=== PATIENT | male | born 1950 | race Caucasian/White ===

== ENCOUNTER 2017-09-24 03:03 | Inpatient (IN) | payer MEDICARE ==
[2017-09-24] MEDS ORDERED: Fentanyl 100 MCG/2 ML VIAL ONE (03:11)
[2017-09-24] MEDS ORDERED: Metoprolol Tartrate 5 MG/5 ML VIAL ONE (03:11)
[2017-09-24 03:38] LABS: #Eosinphils 0.2 thou/uL (0.0-0.7); #Lymphocytes 1.1 thou/uL (1.20-3.40); #Monocytes 0.9 thou/uL (0.11-0.59); #Neutrophils 8.3 thou/uL (1.40-6.50); %Eosinophils 2.1 % (0.0-10.0); %Lymphocytes 10.8 % (21.0-51.0); %Monocytes 8.4 % (0.0-10.0); %Neutrophils 78.6 % (42.0-75.0); Mean Corpuscular HGB CONC 33.9 g/dL (32.0-36.0); Mean Corpuscular Hemoglobin 28.9 pg (27.0-31.0); Mean Corpuscular Volume 85.1 fl (80.0-94.0); Mean Platelet Volume 8.9 fL (7.4-10.4); Platelet Count 198 thou/uL (130-400); Red Blood Cell (RBC) Count 3.45 mill/uL (4.70-6.10); White Blood Cell (WBC) Count 10.5 thou/uL (4.8-10.8)
[2017-09-24 03:45] LABS: PTT 32.6 SEC (22.9-36.1); Prothrombin Time 13.7 SEC (12.0-14.7)
[2017-09-24 04:00] LABS: ALT (SGPT) 33 U/L (8-55); AST (SGOT) 27 U/L (5-34); Albumin 3.3 g/dL (3.4-4.8); Alkaline Phosphatase 171 U/L (40-150); Anion Gap 14 mmol/L (10-20); BUN (Urea Nitrogen) 26 mg/dL (8.4-25.7); Bilirubin, Total 0.6 mg/dL (0.2-1.2); Calc. Creatinine Clearance 0 mL/min (70-130); Calcium 8.1 mg/dL (7.8-10.44); Carbon Dioxide 23 mmol/L (23-31); Chloride 99 mmol/L (98-107); Estimated GFR-MDRD 50; Globulin 2.8 g/dL (2.4-3.5); Glucose 116 mg/dL (80-115); Magnesium 1.4 mg/dL (1.6-2.6); Potassium 3.6 mmol/L (3.5-5.1); Protein, Total 6.1 g/dL (5.8-8.1); Sodium 132 mmol/L (136-145)
[2017-09-24 04:03] LABS: CKMB 4.6 ng/mL (0-6.6); Troponin I 0.034 ng/mL (< 0.028)
[2017-09-24 04:58] LABS: Bilirubin Small (Negative); Blood, Urine Negative (Negative); Clarity CLEAR (Clear); Glucose, Urine (Dipstick) Negative (Negative); Leukocyte Trace (Negative); Nitrite Negative (Negative); Protein, Urine (Dipstick) Negative (Neg-Trace); Specific Gravity, Urine 1.016 (1.002-1.036)
[2017-09-24 05:00] LABS: Bacteria/HPF None Seen HPF (None Seen); Pathc Cast-AUWi Flag 1.88 (0-2.49); RBC/HPF 0-3 HPF (0-3); Squamous Epithelial 0-3 HPF (0-3); WBC/HPF 0-3 HPF (0-3)
[2017-09-24 05:08] LABS: Hyaline Casts/LPF 4-6 HYALINE CAST LPF (0-3 Hyaline)
[2017-09-24 07:18] LABS: Troponin I 0.076 ng/mL (< 0.028)
[2017-09-24] MEDS ORDERED: Acetaminophen 325 MG TAB PO PRN ×2 (08:36→11:11)
[2017-09-24] MEDS ORDERED: Ondansetron ODT 4 MG TAB PO PRN (08:37)
[2017-09-24] MEDS ORDERED: Ondansetron HCl/PF 4 MG/2 ML Vial IVP PRN (08:37)
--- NOTE | 2017-09-24 08:58 | CT ---
PRELIMINARY REPORT/[facility]/EMERGENTY AFTER-HOURS PROCEDURE CT Angiography Chest With Intravenous Contrast CLINICAL HISTORY: 66 years old, male; Signs and symptoms; Shortness of breath; Prior surgery; Surgery date: 6+months; P atient HX: 66 yo m presents to ed C/O SOB onset 23: 30 this evening. On ems arrival, pt heart rate 21 0 in svt/afib. Given adenosine, cardizem, and 1800 of fluid en route. Unknown h/o afib. Son reports h/o quadruple bypass 5 years ago. States that pt had fusion neck on 08/28/17, surgery on ba ck on 08/30/17, and splint on foot on 09/02/17. Ems reports pt was just released from hospital. Denies f ever. Son states pt is a former smoker, quit 6 years ago. States that pt drinks about a glass of red wine a night. TECHNIQUE: Axial computed tomographic angiography images of the chest with intravenous contrast using pulmonary embolism protocol. MIP reconstructed images were created and reviewed. CONTRAST: 60 mL of ISOVUE 370 administered intravenously. COMPARISON: No relevant prior studies available. FINDINGS: Pulmonary arteries: No pulmonary embolism. Aorta: No acute findings. No thoracic aortic aneurysm. Lungs: Mild interstitial edema No mass. No consolidation. 2 mm nodule on image 52 in the rightupper l obe noted Pleural space: Trace pleural fluid. No pneumothorax. Heart: Post CABG. Mild cardiomegaly. No significant pericardial effusion. No evidence of RV dysfunction. Bones/joints: No acute fracture. No dislocation. Postsurgical changes in the lumbar spine partially visualized. Partially visualized cervical fusion hardware Soft tissues: Unremarkable. Lymph nodes: Mildly enlarged mediastinal lymph nodes IMPRESSION: No definite pulmonary embolism Mild interstitial edema and trace pleural fluid. Mild adenopathy presumed reactive Status post CABG Thank you for allowing us to participate in the care of your patient. Dictated and Authenticated by: Rudi Varma MD 09/24/2017 5:28 AM Central Time ([place] & [place]) FINAL REPORT CT ANGIOGRAM OF THE CHEST: Date: 09/24/17 HISTORY: New onset atrial fibrillation with RVR. Evaluate for pulmonary embolism. COMPARISON: None. TECHNIQUE: CT angiogram of the chest is performed in the axial plane. Bilateral oblique and coronal three-dimens ional reformatted images are submitted for interpretation. FINDINGS: This report is in agreement with the preliminary report by Silvana. No evidence of pulmonary artery embo lism to the level of the segmental arteries. Lung parenchymal changes are presumed to be due to conge stive heart failure/volume overload. There are a few scattered nonspecific mediastinal lymph nodes wh ich may be reactive. Clinical correlation is essential. Additional imaging if warranted. POS: [facility]
[2017-09-24] MEDS ORDERED: ISOVUE-370 76%-LOCM 1 ML ONE (09:26)
[2017-09-24 09:36] LABS: Troponin I 0.099 ng/mL (< 0.028)
--- NOTE | 2017-09-24 09:36 | RAD ---
CHEST 1 VIEW: HISTORY: SVT. COMPARISON: None. FINDINGS: Defibrillator pad projects in the right hemithorax. Heart size is enlarged. Mild increased intersti tial markings. No pneumothorax. Surgical hardware is present. IMPRESSION: Mild cardiomegaly and interstitial edema. POS: [facility]
[2017-09-24] MEDS ORDERED: Guaifenesin DM 100-10/5 ML UDCUP PO PRN (11:11)
[2017-09-24] MEDS ORDERED: Dextrose 50% Abboject 50 ML SYRINGE SLOW IVP PRN (11:11)
[2017-09-24] MEDS ORDERED: Dextrose 5% in Water 1,000 ML IV PRN (11:11)
[2017-09-24] MEDS ORDERED: HumaLOG 300 UNITS/3 ML VIAL SC PRN (11:11)
[2017-09-24] MEDS ORDERED: Furosemide 20 MG TAB PO SCH ×2 (11:15→14:00)
[2017-09-24] MEDS: hydrALAZINE 25 MG TAB PO SCH ×2 (14:46→21:14)
[2017-09-24] MEDS: Furosemide 40 MG TAB PO SCH (14:47)
[2017-09-24 14:50] VITALS: BMI 33.3
--- NOTE | 2017-09-24 14:57 | HP ---
REASON FOR ADMISSION: Atrial fibrillation with RVR. HISTORY OF PRESENT ILLNESS: The patient gives history of being discharged from [facility] yesterday. He went home and was not comfortable ambulating with his walker, which does not have wheels. He apparently ambulated 125 feet prior to getting discharged from rehabilitation. Around 11:30 p.m., the patient felt very short of breath. He tried putting his CPAP on, still the shortness of breath would not go away. He felt very weak and he tried various maneuvers including sitting, none of which really helped. He finally called EMS and was brought here. He has had recent surgery for his cervical spine and thoracic spine at [facility] in [place]. This was done on the and and postop patient also had a pneumonia and was in ICU for a week. He was finally discharged to rehabilitation. He was recuperating well prior to going home. No complaints of chest pain, palpitations. Still has orthopnea, but no PND. PAST MEDICAL/SURGICAL HISTORY: History of CABG done in 2014. His primary coat cutter is Dr. Sofia Amezcua, coat cutter in [place]. He also follows up with Dr. 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 His primary care doctor is Dr. Benji Henry in [place]. Obstructive sleep apnea and has had ACDF for C3-C2 vertebra and L1-L5 internal fixation done at [facility] in [place] on the and 30 of August this year, has had prophylactic IVC filter placed. There is no history of DVT. He was told if this did not come out in 14 days it would stay inside him. Has had carotid stent on the right side done in late 2014, dyslipidemia, obesity. CURRENT MEDICATIONS: The patient is on atorvastatin 20 mg daily, hydralazine 25 mg 3 times daily, oxycodone p.r.n., Lyrica 75 mg 3 times daily. The patient does not recall other medications that he is on and will try to obtain the same from his pharmacy. ALLERGIES: PENICILLIN. PERSONAL HISTORY: Drinks 3-4 glasses of red wine in a week, does not abuse drugs. Quit smoking in 2014 prior to CABG, has smoked for nearly 30-40 years prior to that. Lives with his . FAMILY HISTORY: Mother of cirrhosis and its complications in her 30s. She was a heavy alcoholic. Father of COPD and its complications at the age of 68. CODE STATUS: FULL. Power of administrative and program specialist is his . REVIEW OF SYSTEMS: The following complete review of systems was negative, unless otherwise mentioned in the HPI or below: Constitutional: Weight loss or gain, ability to conduct usual activities. Skin: Rash, itching. Eyes: Double vision, pain. ENT/Mouth: Nose bleeding, neck stiffness, pain, tenderness. Cardiovascular: Palpitations, dyspnea on exertion, orthopnea. Respiratory: Shortness of breath, wheezing, cough, hemoptysis, fever or night sweats. Gastrointestinal: Poor appetite, abdominal pain, heartburn, nausea, vomiting, constipation, or diarrhea. Genitourinary: Urgency, frequency, dysuria, nocturia. Musculoskeletal: Pain, swelling. Neurologic/Psychiatric: Anxiety, depression. Allergy/Immunologic: Skin rash, bleeding tendency. PHYSICAL EXAMINATION: GENERAL: The patient is a 66-year-old male who is currently not in any acute distress. VITAL SIGNS: Blood pressure 110/70; pulse 146 on arrival, currently 84; respiratory rate is 18 per minute; temperature 98.6 degrees Fahrenheit; saturating 98%. NECK: Supple. No elevated JVD. HEENT: Eyes: Extraocular muscles intact. Pupils reacting to light. Oral cavity mucous membranes are moist. No exudates or congestion. The patient has a cervical collar on. CARDIOVASCULAR: S1, S2 heard. Regular rhythm. RESPIRATORY: Air entry 1+ bilateral. Scattered rhonchi plus bilateral basal rales plus. ABDOMEN: Soft, bowel sounds heard. No tenderness, rigidity or guarding. EXTREMITIES: There is 1-2+ peripheral edema, no calf tenderness. VASCULAR SYSTEM: Peripheral pulses 1+ bilateral, no ischemic ulcerations or gangrene. CENTRAL NERVOUS SYSTEM: No gross focal deficits seen. The patient is alert, awake, and oriented well. PSYCHIATRIC: The patient's mood is euthymic. No hallucinations or delusions. LABORATORY AND X-RAY FINDINGS: Initial EKG showed atrial fibrillation with RVR at 200 beats per minute. He also had Q-waves in V2, V3, V4, this was at 3:07 a.m. The patient was given Lopressor and a repeat EKG done at 3:42 a.m., shows normal sinus rhythm at 84 beats per minute. He still has the Q-wave seen in anterolateral leads. White count of 10, H&H 10 and 29, platelet count 198, MCV is 85 with 78% neutrophils. PT, INR, PTT within normal limits. Sodium 132, BUN 26, creatinine 1.4, serum bicarbonate 23, serum glucose 116. Troponin I was indeterminate peaking up to 0.09, CK-MB 4.6, albumin is 3.3. TSH 1.86. CT angio chest done shows no evidence of PE. There is mild pulmonary vascular congestion seen. CLINICAL IMPRESSION AND PLAN: The patient will be admitted to telemetry for atrial fibrillation with rapid ventricular response, currently in sinus rhythm after receiving Lopressor 5 mg IV push in the ER. He is holding up in sinus rhythm until now. He will be placed on Coreg 6.25 mg twice daily along with full dose aspirin. His anticoagulation will be held for now in view of his recent spine surgery and will await Cardiology opinion. Cardiology consultation with Dr. De La Torre is being placed. We will continue his Lipitor, hydralazine, and Lyrica as before. We will also place him on Lasix 40 mg twice daily and BNP levels will be obtained now. Echo with 2D Doppler for LV function and to rule out thrombus. The patient appears to have prior anterolateral wall ID with CABG done in 2014. We will continue to closely monitor him on telemetry floor. WILLAM
[2017-09-24] MEDS: Carvedilol 6.25 MG TAB PO SCH (16:27)
[2017-09-24] MEDS: oxyCODONE/Acetaminophen 5 mg/325 mg Tablet PO PRN ×2 (16:27→21:14)
[2017-09-24] MEDS: Docusate 100 MG CAP PO SCH (21:14)
[2017-09-24] MEDS: Famotidine 20 MG TAB PO SCH (21:14)
[2017-09-24] MEDS: Atorvastatin Calcium 20 MG TAB PO SCH (21:14)
[2017-09-24] MEDS: Pregabalin 75 MG CAP PO SCH (21:15)
[2017-09-24] MEDS ORDERED: Metoprolol Tartrate 5 MG/5 ML VIAL IVP SCH (22:45)
--- NOTE | 2017-09-25 03:25 | CON ---
DATE OF CONSULTATION: 09/24/2017 REASON FOR CONSULTATION: Atrial flutter with a rapid ventricular response. HISTORY OF PRESENT ILLNESS: Mr. Hai Landry is a pleasant gentleman who recently was found to have atrial flutter with a ventricular rate of 210 beats per minute. The patient recently has undergone cervical spine and lumbar spine surgery. He has felt short of simi ath. He ultimately was brought to medical attention and was found to have what looks like atrial flu tter with a rate of 210 beats per minute, very regular. The patient is later converted to normal rhythm and is feeling much better. He did not feel his hear t racing just felt short of breath with that. PAST MEDICAL HISTORY: He had a history of coronary bypass grafting a couple of years ago in the [facility] area x3. His symptom predominant prior to that was shortness of breath. Recent cervical and lum bar spine surgery about 3 to 4 weeks ago. MEDICATIONS AT HOME: 1. Protonix. 2. Furosemide. 3. Diltiazem 90 mg 3 times a day. 4. Carvedilol 12.5 mg twice a day. 5. Atorvastatin. 6. Lyrica. ALLERGIES: PENICILLIN. REVIEW OF SYSTEMS: Constitutional: No significant weight gain or loss. Vision: No changes. Heari ng: No changes. Pulmonary: No cough or wheezing. Gastrointestinal: No nausea, vomiting, diarrhea . Skin: No rashes. Neurologic: No unilateral weakness or numbness. Psychiatric: No unusual depr ession or anxiety. Hematologic: No unusual bruising. Genitourinary: No burning with urination. PHYSICAL EXAMINATION: GENERAL: This is a pleasant 66-year-old man in no distress. VITAL SIGNS: Blood pressure is 149/62, pulse 87 regular. LUNGS: Clear. CARDIAC: Normal S1, normal S2. ABDOMEN: Soft, nontender. EXTREMITIES: No clubbing or cyanosis. There is no edema. HEMATOLOGIC: No unusual bruising. PSYCHIATRIC: Mood and affect normal. SKIN: Warm and dry. IMAGING: EKG as outlined above. The troponin level 0.099. ASSESSMENT: 1. It would look like atrial flutter with a very rapid rate 210 beats per minute, although it could even be supraventricular tachycardia. 2. Recent cervical spine surgery. PLAN: Consult electrophysiology for further recommendations, but some point may need to go to the EP lab. He has very rapid tachycardia despite diltiazem and a beta-noemy.
[2017-09-25] MEDS: oxyCODONE/Acetaminophen 5 mg/325 mg Tablet PO PRN ×3 (03:44→16:29)
[2017-09-25 05:29] LABS: #Basophils 0.1 thou/uL (0.0-0.2); #Eosinphils 0.2 thou/uL (0.0-0.7); #Lymphocytes 0.9 thou/uL (1.20-3.40); #Monocytes 0.6 thou/uL (0.11-0.59); #Neutrophils 4.1 thou/uL (1.40-6.50); %Basophils 1.1 % (0.0-1.0); %Eosinophils 3.7 % (0.0-10.0); %Lymphocytes 15.4 % (21.0-51.0); %Monocytes 10.5 % (0.0-10.0); %Neutrophils 69.4 % (42.0-75.0); Mean Corpuscular HGB CONC 33.4 g/dL (32.0-36.0); Mean Corpuscular Hemoglobin 29.1 pg (27.0-31.0); Mean Corpuscular Volume 87.1 fl (80.0-94.0); Mean Platelet Volume 8.9 fL (7.4-10.4); Platelet Count 159 thou/uL (130-400); RBC Distribution Width 15.9 % (11.5-14.5); Red Blood Cell (RBC) Count 3.08 mill/uL (4.70-6.10); White Blood Cell (WBC) Count 5.9 thou/uL (4.8-10.8)
[2017-09-25 05:39] LABS: Anion Gap 14 mmol/L (10-20); BUN (Urea Nitrogen) 20 mg/dL (8.4-25.7); Calc. Creatinine Clearance 87 mL/min (70-130); Calcium 8.4 mg/dL (7.8-10.44); Carbon Dioxide 24 mmol/L (23-31); Chloride 101 mmol/L (98-107); Estimated GFR-MDRD 60; Glucose 105 mg/dL (80-115); Potassium 3.5 mmol/L (3.5-5.1); Sodium 135 mmol/L (136-145)
[2017-09-25] MEDS ORDERED: Furosemide 20 MG TAB PO SCH (09:00)
[2017-09-25] MEDS: Docusate 100 MG CAP PO SCH ×2 (10:17→21:39)
[2017-09-25] MEDS: Carvedilol 6.25 MG TAB PO SCH ×2 (10:17→16:32)
[2017-09-25] MEDS: hydrALAZINE 25 MG TAB PO SCH ×3 (10:17→21:39)
[2017-09-25] MEDS: Pregabalin 75 MG CAP PO SCH ×2 (10:18→21:40)
[2017-09-25] MEDS: Furosemide 40 MG TAB PO SCH ×2 (10:19→14:06)
[2017-09-25] MEDS: Famotidine 20 MG TAB PO SCH ×2 (10:19→21:39)
[2017-09-25] MEDS: Aspirin 325 MG TAB PO SCH (10:19)
[2017-09-25] MEDS: Enoxaparin Sodium 40 MG/0.4 ML SYRINGE SC SCH (10:19)
--- NOTE | 2017-09-25 11:37 | PDOC.PN ---
- Subjective Encounter Start Date: 09/25/17 Encounter Start Time: 08:40 Subjective: has another brief episode of svt/flutter last night -: no chest pain or sob -: is sitting in chair and eating breakfast - Objective Resuscitation Status: Resuscitation Status FULL:Full Resuscitation MAR Reviewed: Yes Vital Signs & Weight: Vital Signs (12 hours) Temp Pulse Resp BP BP BP Pulse Ox 09/25/17 10:17 83 114/52 L 09/25/17 09:52 98.2 F 83 18 134/58 L 100 09/25/17 04:00 97.9 F 71 20 126/56 L 97 09/25/17 03:24 98 Weight Weight 232 lb I&O: 09/24/17 09/25/17 09/26/17 06:59 06:59 06:59 Intake Total 1050 Output Total 110 Balance 940 Result Diagrams: 09/25/17 05:03 09/25/17 05:03 Additional Labs: Accuchecks 09/25/17 09/24/17 09/24/17 05:52 20:46 16:36 POC Glucose 111 H 195 H 171 H 09/24/17 12:06 POC Glucose 114 H Phys Exam - Physical Examination HEENT: PERRLA, moist MMs Neck: no JVD, supple Respiratory: no wheezing, no rales Cardiovascular: RRR, no significant murmur Gastrointestinal: soft, non-tender, positive bowel sounds Musculoskeletal: pulses present, edema present Neurological: non-focal, moves all 4 limbs Psychiatric: normal affect, A&O x 3 Dx/Plan (1) Afib Code(s): I48.91 - UNSPECIFIED ATRIAL FIBRILLATION Status: Acute Qualifiers: Atrial fibrillation type: paroxysmal Qualified Code(s): I48.0 - Paroxysmal atrial fibrillation (2) CAD (coronary artery disease) Code(s): I25.10 - ATHSCL HEART DISEASE OF [place] CORONARY ARTERY W/O ANG PCTRS Status: Chronic Qualifiers: Coronary Disease-Associated Artery/Lesion type: bypass graft [place] vs. transplanted heart: [place] heart Associated angina: without angina Qualified Code(s): I25.810 - Atherosclerosis of coronary artery bypass graft(s) without angina pectoris (3) HTN (hypertension) Code(s): I10 - ESSENTIAL (PRIMARY) HYPERTENSION Status: Chronic Qualifiers: Hypertension type: essential hypertension Qualified Code(s): I10 - Essential (primary) hypertension (4) Dyslipidemia Code(s): E78.5 - HYPERLIPIDEMIA, UNSPECIFIED Status: Chronic (5) Physical deconditioning Code(s): R53.81 - OTHER MALAISE Status: Acute (6) Demand ischemia of myocardium Code(s): I24.8 - OTHER FORMS OF ACUTE ISCHEMIC HEART DISEASE Status: Acute - Plan diuresed well with mild vol overload, await echo results -: is on coreg, asp, lipitor -: cardizem 90mg tid was added from last night -: change lasix to qd in am -: for likely ablation/EPS, will need rehab/swing bed * . Review of Systems - Medications/Allergies Allergies/Adverse Reactions: Allergies Allergy/AdvReac Type Severity Reaction Status Date / Time Penicillins Allergy Verified 09/24/17 09:50 Medications: Current Medications Acetaminophen (Tylenol) 650 mg PO Q4H PRN PRN Reason: Headache/Fever or Pain Aspirin (Aspirin) 325 mg PO DAILY [facility] Last Admin: 09/25/17 10:19 Dose: 325 mg Atorvastatin Calcium (Lipitor) 20 mg PO HS [facility] Last Admin: 09/24/17 21:14 Dose: 20 mg Carvedilol (Coreg) 6.25 mg PO BID-WM [facility] Last Admin: 09/25/17 10:17 Dose: 6.25 mg Dextrose/Water (Dextrose 50%) 25 gm SLOW IVP PRN PRN PRN Reason: Hypoglycemia Diltiazem HCl (Cardizem) 90 mg PO TID [facility] Last Admin: 09/25/17 10:17 Dose: 90 mg Docusate Sodium (Colace) 100 mg PO BID [facility] Last Admin: 09/25/17 10:17 Dose: 100 mg Enoxaparin Sodium (Lovenox) 40 mg SC 0900 [facility] Last Admin: 09/25/17 10:19 Dose: 40 mg Famotidine (Pepcid) 20 mg PO BID [facility] Last Admin: 09/25/17 10:19 Dose: 20 mg Furosemide (Lasix) 40 mg PO 0900,1400 [facility] Last Admin: 09/25/17 10:19 Dose: 40 mg Glucagon (Glucagon) 1 mg IM PRN PRN PRN Reason: Hypoglycemia Guaifenesin/Dextromethorphan (Robitussin Dm) 15 ml PO Q4H PRN PRN Reason: Cough Hydralazine HCl (Apresoline) 25 mg PO TID [facility] Last Admin: 09/25/17 10:17 Dose: 25 mg Dextrose/Water (D5w) 1,000 mls @ 0 mls/hr IV .Q0M PRN; As Directed PRN Reason: Hypoglycemia Insulin Human Lispro (Humalog) 0 units SC .MILD SLIDING SCALE PRN PRN Reason: Mild Correctional Scale Last Admin: 09/24/17 16:39 Dose: 2 unit Oxycodone/Acetaminophen (Percocet 5/325) 1 tab PO Q6H PRN PRN Reason: Pain Last Admin: 09/25/17 10:14 Dose: 1 tab Pregabalin (Lyrica) 75 mg PO BID [facility] Last Admin: 09/25/17 10:18 Dose: 75 mg
[2017-09-25] MEDS: Dronedarone HCl 400 MG TAB PO SCH (16:32)
[2017-09-25] MEDS: Atorvastatin Calcium 20 MG TAB PO SCH (21:38)
[2017-09-26] MEDS: oxyCODONE/Acetaminophen 5 mg/325 mg Tablet PO PRN ×2 (06:29→16:32)
[2017-09-26 08:44] LABS: #Eosinphils 0.2 thou/uL (0.0-0.7); #Monocytes 0.5 thou/uL (0.11-0.59); %Basophils 0.1 % (0.0-1.0); %Eosinophils 3.3 % (0.0-10.0); %Lymphocytes 17.1 % (21.0-51.0); %Monocytes 9.4 % (0.0-10.0); %Neutrophils 70.2 % (42.0-75.0); Hemoglobin 9.7 g/dL (14.0-18.0); Mean Corpuscular HGB CONC 33.7 g/dL (32.0-36.0); Mean Corpuscular Hemoglobin 29.1 pg (27.0-31.0); Mean Corpuscular Volume 86.5 fl (80.0-94.0); Mean Platelet Volume 8.8 fL (7.4-10.4); Platelet Count 170 thou/uL (130-400); RBC Distribution Width 15.9 % (11.5-14.5); Red Blood Cell (RBC) Count 3.32 mill/uL (4.70-6.10); White Blood Cell (WBC) Count 5.6 thou/uL (4.8-10.8)
[2017-09-26 09:04] LABS: Anion Gap 13 mmol/L (10-20); BUN (Urea Nitrogen) 17 mg/dL (8.4-25.7); Calc. Creatinine Clearance 82 mL/min (70-130); Calcium 8.7 mg/dL (7.8-10.44); Carbon Dioxide 27 mmol/L (23-31); Chloride 97 mmol/L (98-107); Estimated GFR-MDRD 58; Glucose 136 mg/dL (80-115); Potassium 3.6 mmol/L (3.5-5.1); Sodium 133 mmol/L (136-145)
[2017-09-26] MEDS: Docusate 100 MG CAP PO SCH (09:42)
[2017-09-26] MEDS: Dronedarone HCl 400 MG TAB PO SCH ×2 (09:42→16:31)
[2017-09-26] MEDS: Aspirin 325 MG TAB PO SCH (09:42)
[2017-09-26] MEDS: hydrALAZINE 25 MG TAB PO SCH ×2 (09:42→16:31)
[2017-09-26] MEDS: Pregabalin 75 MG CAP PO SCH (09:43)
[2017-09-26] MEDS: Famotidine 20 MG TAB PO SCH (09:44)
[2017-09-26] MEDS: Carvedilol 6.25 MG TAB PO SCH ×2 (09:45→16:31)
[2017-09-26] MEDS: Enoxaparin Sodium 40 MG/0.4 ML SYRINGE SC SCH (09:45)
[2017-09-26] MEDS ORDERED: Furosemide 40 MG TAB PO SCH (10:00)
--- NOTE | 2017-09-26 10:47 | CON ---
DATE OF CONSULTATION: 09/25/2017 ELECTROPHYSIOLOGY CONSULTATION DICTATED FOR: Riki Schwartz M.D. REFERRING PHYSICIAN: Keon De La Torre M.D. REASON FOR CONSULTATION: Atrial flutter with rapid ventricular response. PRIMARY CARE PROVIDER: Dr. Benji Henry PRIMARY TAR BOILER: Sofia Amezcua MD CHIEF COMPLAINT: Dizziness and a fall at home with dyspnea at rest. HISTORY OF PRESENT ILLNESS: Mr. Landry is a pleasant male who was recently admitted after having a f all at home. He has a somewhat complicated past medical history over the past month. He was origina lly at [facility] in [place] and underwent a multilevel anterior cervical corpectomy o n 08/28/2017 for severe cervical spondylosis and myelopathy as well as multilevel decompression eugene ectomies L1 through S1. He was discharged from [facility] after his recovery to LTAC and from there transition to home on 09/23/2017. While at home, he was at home and trying to get on the couch and e nded up falling. He began to experience severe dyspnea at rest with associated dizziness, not correc kodak when he put his CPAP on, so he called 911 and presented to the emergency room. Upon presentation , there he was found to be in atrial flutter with ventricular rate of 210 beats per minute. To the b est of his knowledge, he has never been diagnosed with atrial arrhythmias in the past and this is the first time he has experienced this. Today, we find that overall he is feeling okay. He not experie nce any heart racing, palpitations, chest pain, pressure, or continued dizziness. He did not have an y associated chest pain with his rapid heart rate. He denies any history of passing out. He is in a C-spine collar that needs to remain in place for the following 30 days. Denies any shortness of simi ath or dyspnea on exertion. Since he converted to normal sinus rhythm on his own. He is feeling muc h better and does not have any cardiac concerns or complaints at this time. He does have some swelli ng of his lower extremities and is receiving Lasix for that. PAST MEDICAL HISTORY: 1. Cerebrovascular accident. 2. Hypertension. 3. Hypercholesterolemia. 4. Carotid artery stenosis 50-69% of the right internal carotid, status post stenting, left internal carotid patent, coronary artery disease in the prior bypass grafting, 3-vessel in 2014. 5. Severe lumbar spinal stenosis from L1-S1. 6. Mechanical back pain. 7. Degenerative disk disease. 8. Grade I spondylolisthesis at L4-5. 9. Multilevel anterior cervical spondylosis and myelopathy status post cervical corpectomy on 2017. 10. Sleep apnea, treated with CPAP at night. 11. Mildly reduced LV function with an EF of 40-45% by ultrasound on 11/2015. ALLERGIES: Include PENICILLIN which causes hives. HOME MEDICATIONS: Tylenol 500 mg 2 tabs daily, aspirin 81 mg daily, vitamin D 5000 units daily, Plav ix 75 mg daily, cyanocobalamin 100 mcg daily, lisinopril 15 mg daily, and metoprolol 12.5 mg b.i.d. SOCIAL HISTORY: Remote history of tobacco habituation, quit in 2014, [id number] history. Positive for alcohol consumption, 4-5 glasses of wine per week. Negative for illicit drug use. FAMILY HISTORY: Father and sister had COPD, negative for early onset of coronary artery disease, arr hythmias or sudden cardiac . REVIEW OF SYSTEMS: A 12-point review of systems was conducted and is negative except that listed in the HPI. PHYSICAL EXAMINATION: VITAL SIGNS: Pulse is 83, blood pressure 114/52, oxygen saturation is 98% on 2 liters via nasal medardo kourtney. GENERAL: This is an overweight, well-nourished male in no acute distress. He is currently wearing cervical spine collar. He is alert and oriented. HEENT: His speech is clear. His affect is appropriate. Sclerae anicteric. EOMs are intact. LUNGS: Clear to auscultation bilaterally without wheezes, crackles or rhonchi. CARDIOVASCULAR: His rate is currently regular. PMI is nondisplaced. ABDOMEN: Obese, soft, nontender without palpable masses and positive bowel sounds are noted througho ut. EXTREMITIES: Warm and dry to touch without clubbing or cyanosis. 1+ edema is noted to bilateral low er extremities. NEUROLOGIC: Grossly intact and exam is nonfocal. DATABASE: Laboratory WBC 5.9, hemoglobin 9.0, hematocrit 26.8, platelet count is 159. Sodium 135, p otassium 3.5, chloride 101, bicarbonate 24, BUN is 20, and creatinine is 1.2. Chest x-ray on 018, revealed mild cardiomegaly and interstitial edema. Echocardiogram is pending; however, echo fro m 11/2005 revealed mild LV dysfunction with an EF of 40-45%. Review of telemetry and 12-lead EKGs. The patient is currently maintaining sinus rhythm with rate in the 70 beat per minute range. However , on admission the patient was in what appears to be in atrial flutter with ventricular response rate of 200-210 beats per minute. He spontaneously converted to normal sinus rhythm and did not require cardioversion. ASSESSMENT AND PLAN: 1. New onset of atrial arrhythmias, likely an atrial flutter with rapid ventricular response, paroxy smal. 2. Elevated CHADS-VASc score of 5 in the bases age. History of hypertension, history of cerebrovasc ular accident and vascular disease, currently only on aspirin 325 mg daily. We will likely need OAC for full anticoagulation to be continued as an outpatient. 3. History of coronary artery disease. 4. Obesity. 5. Mild fluid overload currently receiving scheduled Lasix for gentle diuresis. 6. Recent spinal and lumbar surgeries. Recommendations at this time, I recommend medical management for his atrial arrhythmia with Multaq. He does have mild LV dysfunction with EF of 40-45% with some fluid retention. If pending echo result s return, and his EF is worse or he is diagnosed with heart failure. Multaq would no longer be an op tion and the patient may require short course of amiodarone until he is stable enough for ablation. At this point, the patient is in a C-spine collar. We will wait until he has recovered from his orth o surgeries to proceed with scheduling an ablation. He will likely benefit from this as well as an E P study in the somewhat near future. I discussed status post atrial arrhythmias, oral anticoagulatio n and revealed the treatment options with the patient at length including medical management, ablatio n and cardioversion. The patient is currently maintaining sinus rhythm. We will continue to follow throughout his hospitalization. Thank you for allowing us to participate in the care of this patient.
--- NOTE | 2017-09-26 11:11 | PRG ---
DATE OF SERVICE: 09/26/2017 SUBJECTIVE: Mr. Landry seems to be doing well. No new issues overnight. OBJECTIVE: VITAL SIGNS: Blood pressure is 136/60, heart rate 81, respiratory rate 18, temperature 98 degrees Fa hrenheit. GENERAL: This is an alert and oriented man, in no apparent distress. NECK: Neck is in a neck collar hence recent back and neck surgery. CHEST: Coarse without crackles. CARDIOVASCULAR: Heart sounds are regular to rate and rhythm. No murmur or gallop. ABDOMEN: Benign. Bowel sounds are positive. EXTREMITIES: Lower extremities without edema, clubbing or cyanosis. LABORATORY DATA: Mild anemia with 9.7 hemoglobin, white cell count and platelet count are in normal range. IMAGING DATA: Telemetry strips reviewed reveals continued sinus rhythm. No significant QT prolongat ion. No VT arrhythmias noted. ASSESSMENT AND PLAN: Mr. Landry is a 66-year-old man with prior history of recent neck and back spin al surgery for which he was recovering, but he was noted to have extremely rapid heart rates and not feeling well. He did not pass out. He was brought to the ER, eventually converted to sinus rhythm w ith rate controlling medications alone. EKGs are suggestive of atrial flutter, not convinced with ty pical isthmus dependent or not. As we discussed yesterday ablation procedure, possibly requiring pulmonary venous isolation as well, could be considered on the other hand with a recent neck and back surgery, anticoagulation will be a n issue and also he is currently likely not safe from his neck standpoint just recovering from the re cent neck and back surgery, therefore, we will postpone the procedure. Alternatively, we used Multaq so far, the recurrence of atrial arrhythmias. History of anticoagulation, hence his history of coronary artery disease, age, hypertension, his MANI S-VASc score is 3, he likely would benefit ideally from an anticoagulant. This likely should be lorri red with surgeon prior to initiating that. Also the aspirin is recommended. Routine followup in the office in 6 weeks is requested.
--- NOTE | 2017-09-26 11:23 | PDOC.PN ---
- Subjective Encounter Start Date: 09/26/17 Encounter Start Time: 07:30 Subjective: no chest pain or palp - Objective Resuscitation Status: Resuscitation Status FULL:Full Resuscitation MAR Reviewed: Yes Vital Signs & Weight: Vital Signs (12 hours) Temp Pulse Resp BP BP BP Pulse Ox 09/26/17 09:45 127/59 L 09/26/17 09:42 84 09/26/17 09:32 98.0 F 84 18 130/54 L 96 09/26/17 04:00 98 F 81 18 136/60 94 L Weight Weight 225 lb 8 oz I&O: 09/25/17 09/26/17 09/27/17 06:59 06:59 06:59 Intake Total 1050 1140 Output Total 110 100 Balance 940 1040 Result Diagrams: 09/26/17 08:20 09/26/17 08:20 Additional Labs: Accuchecks 09/26/17 09/26/17 09/25/17 10:47 06:30 21:02 POC Glucose 100 148 H 167 H 09/25/17 17:06 POC Glucose 130 H Phys Exam - Physical Examination HEENT: PERRLA, moist MMs Neck: no JVD, supple Respiratory: no wheezing, no rales Cardiovascular: RRR, no significant murmur Gastrointestinal: soft, non-tender, positive bowel sounds Musculoskeletal: pulses present, edema present Neurological: non-focal, moves all 4 limbs Psychiatric: A&O x 3 Dx/Plan (1) Afib Code(s): I48.91 - UNSPECIFIED ATRIAL FIBRILLATION Status: Acute Qualifiers: Atrial fibrillation type: paroxysmal Qualified Code(s): I48.0 - Paroxysmal atrial fibrillation Comment: in sinus now (2) CAD (coronary artery disease) Code(s): I25.10 - ATHSCL HEART DISEASE OF [place] CORONARY ARTERY W/O ANG PCTRS Status: Chronic Qualifiers: Coronary Disease-Associated Artery/Lesion type: bypass graft [place] vs. transplanted heart: [place] heart Associated angina: without angina Qualified Code(s): I25.810 - Atherosclerosis of coronary artery bypass graft(s) without angina pectoris (3) HTN (hypertension) Code(s): I10 - ESSENTIAL (PRIMARY) HYPERTENSION Status: Chronic Qualifiers: Hypertension type: essential hypertension Qualified Code(s): I10 - Essential (primary) hypertension (4) Dyslipidemia Code(s): E78.5 - HYPERLIPIDEMIA, UNSPECIFIED Status: Chronic (5) Physical deconditioning Code(s): R53.81 - OTHER [place] Status: Acute (6) Demand ischemia of myocardium Code(s): I24.8 - OTHER FORMS OF ACUTE ISCHEMIC HEART DISEASE Status: Acute - Plan hemostable, anticoag per cardio advice -: on multaq and aspirin -: is on cardizem 90mg tid as well -: change lasix to daily -: dc plan per cardio advice, may dc to rehab if accepted * . Review of Systems - Medications/Allergies Allergies/Adverse Reactions: Allergies Allergy/AdvReac Type Severity Reaction Status Date / Time Penicillins Allergy Verified 09/24/17 09:50 Medications: Current Medications Acetaminophen (Tylenol) 650 mg PO Q4H PRN PRN Reason: Headache/Fever or Pain Aspirin (Aspirin) 325 mg PO DAILY [facility] Last Admin: 09/26/17 09:42 Dose: 325 mg Atorvastatin Calcium (Lipitor) 20 mg PO [facility] Last Admin: 09/25/17 21:38 Dose: 20 mg Carvedilol (Coreg) 6.25 mg PO BID-[facility] Last Admin: 09/26/17 09:45 Dose: 6.25 mg Dextrose/Water (Dextrose 50%) 25 gm SLOW IVP PRN PRN PRN Reason: Hypoglycemia Diltiazem HCl (Cardizem) 90 mg PO TID [facility] Last Admin: 09/26/17 09:45 Dose: 90 mg Docusate Sodium (Colace) 100 mg PO BID [facility] Last Admin: 09/26/17 09:42 Dose: 100 mg Dronedarone (Multaq) 400 mg PO BID-[facility] Last Admin: 09/26/17 09:42 Dose: 400 mg Enoxaparin Sodium (Lovenox) 40 mg SC 0900 [facility] Last Admin: 09/26/17 09:45 Dose: 40 mg Famotidine (Pepcid) 20 mg PO BID [facility] Last Admin: 09/26/17 09:44 Dose: 20 mg Furosemide (Lasix) 40 mg PO DAILY-[facility] Furosemide (Lasix) 40 mg PO 1000 [facility] Stop: 09/26/17 12:00 Last Admin: 09/26/17 10:05 Dose: 40 mg Glucagon (Glucagon) 1 mg IM PRN PRN PRN Reason: Hypoglycemia Guaifenesin/Dextromethorphan (Robitussin Dm) 15 ml PO Q4H PRN PRN Reason: Cough Hydralazine HCl (Apresoline) 25 mg PO TID [facility] Last Admin: 09/26/17 09:42 Dose: 25 mg Dextrose/Water (D5w) 1,000 mls @ 0 mls/hr IV .Q0M PRN; As Directed PRN Reason: Hypoglycemia Insulin Human Lispro (Humalog) 0 units SC .MILD SLIDING SCALE PRN PRN Reason: Mild Correctional Scale Last Admin: 09/24/17 16:39 Dose: 2 unit Oxycodone/Acetaminophen (Percocet 5/325) 1 tab PO Q6H PRN PRN Reason: Pain Last Admin: 09/26/17 06:29 Dose: 1 tab Pregabalin (Lyrica) 75 mg PO BID [facility] Last Admin: 09/26/17 09:43 Dose: 75 mg
[2017-09-26 11:54] VITALS: TEMP 97.9
--- NOTE | 2017-09-26 13:40 | PRG ---
DATE OF SERVICE: 09/26/2017 SUBJECTIVE: Mr. Landry is doing well. No complaints. The patient is on Multaq and Dr. Schwartz has decided to treat him with Multaq and if he has recurrence d oing ablation, probably flutter ablation and may also need an atrial fibrillation ablation, Dr. Schwartz recommended anticoagulation for the fibrillation if it is okay with the surgeon.
[2017-09-26 16:33] VITALS: BP 127/59
--- NOTE | 2017-09-26 22:25 | DIS ---
DATE OF ADMISSION: 09/24/2017 DATE OF DISCHARGE: 09/26/2017 DISCHARGE DISPOSITION: To inpatient rehab. PRIMARY DISCHARGE DIAGNOSIS: Atrial flutter/fibrillation, likely paroxysmal, is in sinus rhythm now. SECONDARY DISCHARGE DIAGNOSES: Coronary artery disease with prior coronary artery bypass grafting, hypertension, dyslipidemia, deconditioning, demand ischemia due to atrial fibrillation/flutter resolved, recent C-spine and lumbar spine surgery on 08/28 and 08/30 done at [facility]. PROCEDURES DONE DURING HOSPITALIZATION: CT angio chest done on the day of admission showed no evidence of PE. There is mild interstitial edema seen. H and H 10 and 28, platelet count is 170 with 70% neutrophils, MCV is 86. PT, INR 13 and 1.0. BUN and creatinine is 17 and 1.2. BNP was 401. Troponin I peaking up to 0.09, CK-MB 4.6. Please note echo with 2D Doppler is pending at present. ALLERGIES: Allergic to PENICILLIN. DISCHARGE MEDICATIONS: The patient to start Xarelto 20 mg from 08/30/2017, aspirin 81 mg p.o. daily, Lipitor 20 mg p.o. at bedtime, Coreg 6.25 mg p.o. twice daily, Flexeril 10 mg p.o. three times daily p.r.n., Cardizem 90 mg p.o. 3 times daily, Multaq 400 mg p.o. twice daily, Lasix 40 mg p.o. daily, hydralazine 25 mg p.o. 3 times daily, oxycodone 10/325 mg q.6 hourly p.r.n., Protonix 40 mg p.o. daily, Lyrica 75 mg p.o. twice daily. INPATIENT CONSULTS: Dr. Riki Schwartz for Electrophysiology, Dr. De La Torre for Cardiology. BRIEF COURSE DURING HOSPITALIZATION: The patient initially got admitted on the with complaints of shortness of breath. On arrival in the ER, the patient was found to be in AFib/flutter with RVR. The patient was given Lopressor 5 mg IV in the ER which seemed to have brought him back into sinus rhythm, but the patient had recurrence and had to be placed on Multaq and Cardizem p.o. He has had Cardiology consultation with Dr. De La Torre and Electrophysiology consultation with Dr. Schwartz. In view of his recent C-spine and extensive lumbar spine stenosis with surgery done on 08/28/2017 and 08/30/2017, the patient is advised to start taking Xarelto from 08/30/2017 at 20 mg daily. I have discussed with his neurosurgery team at [facility] regarding placing him on anticoagulation and they are OK from his surgery perspective. His echo with 2D Doppler is pending at the time of discharge. His echo was ordered on 09/24/2017 and has not been done yet in the hospital and this need to be done at the rehab where he is going to at present. If there is a thrombus, the rehab physician needs to call Dr. De La Torre. He might have to start his Xarelto at an earlier date if a thrombus is found on the 2D echo. He is otherwise hemodynamically stable and has ambulated nearly 160-180 feet with a rolling walker. He needs to further recuperate at the inpatient rehab prior to going home. A total of 35 minutes was spent on discharge plan. Please see a [id number] [facility] for the day of discharge. WILLAM
[2017-09-27] MEDS ORDERED: Furosemide 40 MG TAB PO SCH (07:30)
--- NOTE | 2017-10-01 15:47 | EKG ---
Test Reason : Blood Pressure : / mmHG Vent. Rate : 084 BPM Atrial Rate : 084 BPM P-R Int : 124 ms QRS Dur : 074 ms QT Int : 386 ms P-R-T Axes : 059 004 107 degrees QTc Int : 456 ms Sinus rhythm with occasional Premature ventricular complexes Anteroseptal infarct , age undetermined T wave abnormality, consider lateral ischemia Abnormal ECG Confirmed by JOSE L JUAN M.D. ([id number]), editor farm journal MITALI MENDOSA ([id number]) on 10/01/2017 3:46:25 PM Referred By: Confirmed By:JOSE L JUAN M.D.
--- NOTE | 2017-10-01 15:47 | EKG ---
Test Reason : SVT Blood Pressure : / mmHG Vent. Rate : 200 BPM Atrial Rate : 125 BPM P-R Int : 000 ms QRS Dur : 068 ms QT Int : 224 ms P-R-T Axes : 000 014 174 degrees QTc Int : 408 ms Atrial fibrillation with rapid ventricular response Cannot rule out Anteroseptal infarct , age undetermined Abnormal ECG Confirmed by JOSE L JUAN M.D. ([id number]), newspaper editor managing MITALI MENDOSA ([id number]) on 10/01/2017 3:46:24 PM Referred By: Confirmed By:JOSE L JUAN M.D.
== END 2017-09-26 19:52 | DRG 309 ==
LOC: ERS 03:03 → 2NO 05:15
PROVIDERS: ADMIT Internal Medicine; ATTEND Internal Medicine
DX: I48.92 Unspecified atrial flutter; I25.810 Atherosclerosis of coronary artery bypass graft(s) without angina pectoris; E66.01 Morbid (severe) obesity due to excess calories; I48.0 Paroxysmal atrial fibrillation; Z68.32 Body mass index [BMI] 32.0-32.9, adult; G47.33 Obstructive sleep apnea (adult) (pediatric); Z87.891 Personal history of nicotine dependence; Z95.1 Presence of aortocoronary bypass graft; E78.5 Hyperlipidemia, unspecified; I24.8 Other forms of acute ischemic heart disease; E87.70 Fluid overload, unspecified; I10 Essential (primary) hypertension; Z86.73 Personal history of transient ischemic attack (TIA), and cerebral infarction without residual deficits; Z87.01 Personal history of pneumonia (recurrent); I25.2 Old myocardial infarction; I47.1 Supraventricular tachycardia
CPT/HCPCS: 36415; 36416; 71045; 71275; 80048; 80053; 81003; 81015; 82553; 83605; 83735; 83880; 84443; 84484; 85025; 85610; 85730; 93005; 93010; 96361; 96374; 96375; G8978-GP-CJ; G8979-GP-CI; G8987-GO-CL; G8988-GO-CJ; J1650; J3010

== ENCOUNTER 2017-10-03 19:52 | Inpatient (IN) | payer MEDICARE ==
[~2017-10-03 19:52] MED LIST: ISOVUE-370 76%-LOCM 1 ML ONE
[2017-10-03 20:30] LABS: #Eosinphils 0.1 thou/uL (0.0-0.7); #Lymphocytes 1.8 thou/uL (1.20-3.40); #Monocytes 0.9 thou/uL (0.11-0.59); %Basophils 0.4 % (0.0-1.0); %Eosinophils 1.9 % (0.0-10.0); %Lymphocytes 22.7 % (21.0-51.0); %Monocytes 11.6 % (0.0-10.0); %Neutrophils 63.5 % (42.0-75.0); Hemoglobin 7.7 g/dL (14.0-18.0); Mean Corpuscular HGB CONC 33.9 g/dL (32.0-36.0); Mean Corpuscular Volume 85.4 fl (80.0-94.0); Mean Platelet Volume 8.1 fL (7.4-10.4); Platelet Count 291 thou/uL (130-400); RBC Distribution Width 16.5 % (11.5-14.5); Red Blood Cell (RBC) Count 2.67 mill/uL (4.70-6.10); White Blood Cell (WBC) Count 7.8 thou/uL (4.8-10.8)
[2017-10-03 20:50] LABS: ALT (SGPT) 44 U/L (8-55); AST (SGOT) 39 U/L (5-34); Albumin 3.3 g/dL (3.4-4.8); Alkaline Phosphatase 164 U/L (40-150); Anion Gap 14 mmol/L (10-20); BUN (Urea Nitrogen) 26 mg/dL (8.4-25.7); Bilirubin, Total 0.9 mg/dL (0.2-1.2); CK (CPK) 111 U/L (30-200); Calc. Creatinine Clearance 0 mL/min (70-130); Calcium 8.6 mg/dL (7.8-10.44); Carbon Dioxide 26 mmol/L (23-31); Chloride 95 mmol/L (98-107); Estimated GFR-MDRD 45; Globulin 2.8 g/dL (2.4-3.5); Glucose 146 mg/dL (80-115); Potassium 3.7 mmol/L (3.5-5.1); Protein, Total 6.1 g/dL (5.8-8.1); Sodium 131 mmol/L (136-145)
[2017-10-03 20:53] LABS: CKMB 2.8 ng/mL (0-6.6); Troponin I 0.016 ng/mL (< 0.028)
--- NOTE | 2017-10-03 21:12 | RAD ---
RADIOGRAPH CHEST FRONTAL VIEW 10/03/17 COMPARISON: 10/02/17 INDICATIONS: Dyspnea. FINDINGS: there is enlargement of cardiac silhouette and prominence of pulmonary vasculature. Diffuse reticulon odular opacities throughout each lung. Bilateral mild pleural fluid not excluded. Chest is otherwise similar. IMPRESSION: Findings favor decompensated CHF with pulmonary edema. Recommend clinical correlation as well as cont inued imaging followup. POS: [facility]
[2017-10-03 21:33] LABS: Base Excess (BEa) 3.5 mEq/L (0 (+/-) 2.5); CO2 Tension 35.6 mmHg (35.0-45.0); O2 Tension (PaO2) 55.1 mmHg (80.0-100.0)
[2017-10-03 21:34] LABS: Hematocrit-ABG 22.2 % (42.0-52.0); Hemoglobin (Hb) 5.6 g/dL (14.0-18.0)
[2017-10-03 21:35] LABS: Analyzer IN Cardio ER; Calcium, Ionized 1.1 mmol/L (1.12-1.30); Puncture Site RB
[2017-10-03] MEDS ORDERED: Morphine 4 MG/ML VIAL ONE (21:48)
[2017-10-03] MEDS ORDERED: Succinylcholine Chloride 20 MG/ML 10 ml SYRINGE FS ONE (22:51)
--- NOTE | 2017-10-03 22:58 | CT ---
CTA CHEST WITH 3D VOLUME RENDERIN10/03/17 CLINICAL HISTORY: Dyspnea. Short of breath. FINDINGS: No significant, central filling defect to indicate a large, central pulmonary embolus. There is diff use abnormal interstitial and alveolar opacity of the lung. This is a progressive finding when compar ing to 09/24/17 exam. Mild bilateral pleural based density is seen. No pneumothorax. Scattered vascular disease present including coronary artery calcium with evidence to indicate prior CABG. Nonspecific borderline sized thoracic lymph nodes are present. IMPRESSION: 1. No large, central pulmonary embolus. 2. Progressive, diffuse pulmonary parenchymal opacities which may be on the basis of diffuse andrew ma. Superimposed infectious/inflammatory process not excluded. Continued radiographic followup to con firm resolution is recommended. POS: [facility]
[2017-10-03] MEDS ORDERED: fentaNYL Citrate/PF 2,000 MCG in Sodium Chloride 0.9% 60 ML IV SCH (23:00)
[2017-10-03] MEDS ORDERED: Midazolam HCl 5 mg/ml Vial ONE (23:25)
[2017-10-03 23:38] LABS: PTT 92.2 SEC (22.9-36.1)
[2017-10-03 23:43] LABS: INR-International Normal Ratio 4.2
--- NOTE | 2017-10-03 23:48 | RAD ---
FRONTAL VIEW CHEST: 10/03/17 COMPARISON: Earlier same day. INDICATION: Emergency exam, status post intubation. FINDINGS: Interval placement of endotracheal tube with tip at the level of the thoracic inlet. Diffuse pulmonar y parenchymal opacification remains bilaterally. There is prominence of the cardiomediastinal silhoue tte. IMPRESSION: 1. Interval intubation. 2. Diffuse bilateral pulmonary parenchymal opacity again demonstrated. POS: [facility]
[2017-10-03 23:50] LABS: Bilirubin Negative (Negative); Blood, Urine Negative (Negative); Clarity CLEAR (Clear); Glucose, Urine (Dipstick) Negative (Negative); Leukocyte Negative (Negative); Nitrite Negative (Negative); Protein, Urine (Dipstick) Negative (Neg-Trace); Specific Gravity, Urine 1.038 (1.002-1.036)
[2017-10-03 23:54] LABS: Actual Bicarbonate (HCO3a) 24.9 mEq/L (22-26); Base Excess (BEa) 0.4 mEq/L (0 (+/-) 2.5); CO2 Tension 39.1 mmHg (35.0-45.0); O2 Tension (PaO2) 81.8 mmHg (80.0-100.0); pH, Arterial 7.42 (7.35-7.45)
[2017-10-03 23:55] LABS: Analyzer IN Cardio ER; Calcium, Ionized 1.1 mmol/L (1.12-1.30); Hematocrit-ABG 21.5 % (42.0-52.0); Hemoglobin (Hb) 5.5 g/dL (14.0-18.0)
[2017-10-03 23:56] LABS: ALV-art Gradient 577.325 (0-20); Puncture Site LRA
[2017-10-04] MEDS ORDERED: methylPREDNISolone Sod Succ/PF 125 MG/2 ML VIAL ONE
[2017-10-04] MEDS ORDERED: Phytonadione 10 MG/ML AMP SLOW IVP SCH ×2 (00:15→00:30)
[2017-10-04] MEDS ORDERED: HUMAN PROTHROMBIN COMPLX IV SCH ×3 (00:15)
[2017-10-04] MEDS ORDERED: ADMIXTURE FEE IV SCH ×3 (00:15)
[2017-10-04] MEDS ORDERED: Midazolam HCl 5 mg/ml Vial ONE (00:20)
[2017-10-04] MEDS ORDERED: Phytonadione 10 MG in Sodium Chloride 0.9% 50 ML IVPB SCH ×2 (00:30→01:15)
[2017-10-04 00:33] LABS: #Eosinphils 0.1 thou/uL (0.0-0.7); #Lymphocytes 1.8 thou/uL (1.20-3.40); #Monocytes 0.8 thou/uL (0.11-0.59); #Neutrophils 5.7 thou/uL (1.40-6.50); %Basophils 0.1 % (0.0-1.0); %Eosinophils 1.4 % (0.0-10.0); %Lymphocytes 20.9 % (21.0-51.0); %Monocytes 9.9 % (0.0-10.0); %Neutrophils 67.7 % (42.0-75.0); Hemoglobin 7.4 g/dL (14.0-18.0); Mean Corpuscular HGB CONC 32.9 g/dL (32.0-36.0); Mean Corpuscular Hemoglobin 28.3 pg (27.0-31.0); Mean Corpuscular Volume 85.9 fl (80.0-94.0); Mean Platelet Volume 8.7 fL (7.4-10.4); Platelet Count 297 thou/uL (130-400); RBC Distribution Width 16.7 % (11.5-14.5); White Blood Cell (WBC) Count 8.4 thou/uL (4.8-10.8)
[2017-10-04] MEDS ORDERED: Phytonadione 10 MG/ML AMP ONE (01:10)
[2017-10-04] MEDS ORDERED: Norepinephrine 8 MG/0.9% NS 250 ML IVPB SCH (01:12)
[2017-10-04] MEDS ORDERED: Sodium Chloride 0.9% 1,000 ML IV SCH (01:12)
[2017-10-04] MEDS: Sodium Chloride 0.9% 1,000 ML IV SCH ×3 (02:00→23:58)
--- NOTE | 2017-10-04 02:51 | HP ---
DATE OF ADMISSION: 10/04/2017 CHIEF COMPLAINT: Coughing up blood. HISTORY OF PRESENT ILLNESS: This is a 66-year-old white male with a recent history of cervical spine and thoracic spine fusion, surgery done 3 weeks ago at [facility] and was then transferred t o rehab from there and was discharged from the rehab 2 weeks ago to home, wherein he developed acute shortness of breath with atrial fibrillation with rapid ventricular rate. So he was admitted to [facility] here for atrial fibrillation with rapid ventricular rate, and the patient was on Lopr essor and was started on Multaq and also was started on anticoagulation on Xarelto 20 mg along with a spirin. The patient was discharged to rehab from last admission, was discharged to rehab and at rehabilitation, he was recuperating very well with physical therapy yesterday. He was visited by his wherein he was telling he was feeling fine and will be discharged the following day. Today, wh en the went to see him here, he was told that the patient will be discharged on Sunday, then it was noted that the patient was very pale looking and was coughing up bright red blood. So then he wa s immediately transferred to [place] [facility]. When the patient arrived here, he was very tachypneic in 130s and 140s and is unable to tolerate oxygenation and was acutely short of breath. His CTA of the chest was done to rule out PE, which showed bilateral opacities and patient was coughing up blood an d he was intubated immediately for airway protection and was sedated. It was noted to have a hemoglo bin of 7.7, which acutely dropped to 5.5 according to the ER physicians and most likely cause for the bleeding was Xarelto, which he was on. The patient was a nonsmoker, has a history of CABG in the [facility]. There was no evidence of lung cancer in the past x-rays. Denied having any chest pain according to the . He was completely asymptomatic before the symptoms started. The patient was intubated and unable to get any history at this time and most of the history is obtained from the patient's wi fe and son at the bedside. PAST MEDICAL HISTORY: CABG in 2014, history of obstructive sleep apnea and ACDF of C3 and C2 vertebr a and L1-L5 internal fixation, the patient has a history of DVT recently, history of atrial fibrillat ion. PAST SURGICAL HISTORY: 1. C3-C2 ACDF and L1-L5 internal fixation done at [facility] just 3 weeks ago. 2. CABG in 2015. SOCIAL HISTORY: The patient is a known drinker. He does drink alcohol, 3-5 glasses of wine a week a nd no history of illicit drug use. Quit smoking in 2015. Lives with his . FAMILY HISTORY: Mother of cirrhosis and complications in her 30s and she was a heavy alcoholic. Father of COPD and complications at the age 68. ALLERGIES: PENICILLIN. HOME MEDICATIONS: The patient is on aspirin 81 mg daily, atorvastatin 20 mg daily, Coreg 6.125 mg da funmi, cyclobenzaprine, diltiazem 90 mg p.o. t.i.d., dronedarone 400 mg p.o. b.i.d., Lasix, hydralazine 25 mg p.o. t.i.d., oxycodone, pantoprazole, pregabalin 75 mg p.o. b.i.d. and Xarelto. REVIEW OF SYSTEMS: Cannot be obtained the patient is intubated and sedated and most of the review of systems has been obtained from the patient's prior to this event. PHYSICAL EXAMINATION: VITAL SIGNS: Blood pressures were 138/88, respiratory is 20, saturation is 100% on 60% FiO2. GENERAL: The patient is seen, lying in the bed, supine with mechanical intubation. HEENT: Atraumatic, normocephalic. PERRLA. Extraocular movements could not be assessed as the patie nt is sedated. NECK: No thyromegaly, no JVD was noted. CARDIOVASCULAR: S1, S2 normal. No murmurs, rubs or gallops. Has irregularly irregular heart rate. LUNGS: Bilateral air entry with dullness noted bilaterally. ABDOMEN: Soft, nontender. No guarding or rebound tenderness. Bowel sounds normal. MUSCULOSKELETAL: No calf tenderness. No pedal edema, no joint tenderness, no joint swelling. SKIN: No cyanosis, no erythema, no rash, no pallor. CENTRAL NERVOUS SYSTEM: Could not be done as the patient is sedated. PSYCHIATRIC: Could not be done as the patient is sedated. LYMPHATIC: No evidence of any generalized lymph nodes were noted. LABORATORY DATA: WBC 8.4, hemoglobin is 7.4, hematocrit is 22.3, and platelets are 297. INR is 4.2. Blood gases were done with a pH of 7.42, pCO2 of 39, pO2 of 81.2 and hemoglobin was found to be 5.5 on ABG. AA gradient was pretty high at 577. Sodium 131, potassium 3.7, chloride is 95, BUN 26, cre atinine 1.53, blood sugar 146. BNP was 236. ASSESSMENT: 1. Acute hypoxic respiratory failure. 2. Acute hemoptysis. 3. Acute congestive heart failure, likely diastolic dysfunction. 4. Atrial fibrillation on anticoagulation. 5. Acute hyponatremia. 6. Acute kidney injury. 7. Anemia of acute blood loss. PLAN: 1. Plan is to admit this patient to the ICU. Dr. Landon has been consulted from the ER. Plan is t o continue with mechanical ventilation at this time and plan is to control the bleeding. The patient has a supratherapeutic INR of 4.2. Very surprisingly with known history of liver disease and patien t not being on Coumadin. At this time, we will start the patient on vitamin K, which has already bee n given by the ER and we will repeat the PT/INR in the morning. 2. We will do a 3 units of FFPs to control the bleeding. The patient was also ordered for 3 units o f p.r.n. packed red blood cell transfusion. We will get a 2D echo to look for any evidence of wall m otion abnormality or efficiency of the ejection fraction. 3. We will consult Cardiology in the morning though the primary problem is not cardiac. The patient has history of CABG in the past and he does follow with Cardiology. 4. The patient has history of atrial fibrillation which is rate controlled, is on Multaq and Cardize m, which will be held at this time because of the patient being intubated and we will put him on NG t ube and we will start the patient on his oral medications. 5. The patient has bilateral opacities most likely this could be hemoptysis, but there could be an u nderlying reason for the bleeding at this time and start the patient on IV antibiotics empirically fo r pneumonia. We will do levofloxacin 50 mg IV daily and vancomycin 1 gram IV b.i.d. and we will cont inue the nebulizer treatments. 6. Deep venous thrombosis prophylaxis, sequential compression devices. The patient is acutely high risk for bleeding. I spent 75 minutes with this patient, of this, one hour is the critical care time.
[2017-10-04] MEDS ORDERED: DISCONTINUE PREVIOUS NARCOTIC PAIN MEDICATIONS AND BENZODIAZEPINES FS SCH ×2 (06:02)
[2017-10-04] MEDS ORDERED: Fentanyl BOLUS 250 ML IVPB PRN ×4 (06:02→09:44)
[2017-10-04] MEDS ORDERED: Morphine 2 MG/ML SYRINGE SLOW IVP PRN (06:02)
[2017-10-04] MEDS ORDERED: Propofol 1,000 MG/100 ML VIAL IV PRN ×2 (06:02→09:44)
[2017-10-04] MEDS ORDERED: Lorazepam 2 MG/ML VIAL SLOW IVP PRN ×2 (06:02→09:44)
[2017-10-04] MEDS ORDERED: Prevnar 13-Val Conj/PF 0.5 ML SYRINGE IM ONE (06:45)
[2017-10-04 07:11] LABS: INR-International Normal Ratio 2.8; Prothrombin Time 30.9 SEC (12.0-14.7)
[2017-10-04 07:19] LABS: ALV-art Gradient 465.975 (0-20); Actual Bicarbonate (HCO3a) 25.3 mEq/L (22-26); Base Excess (BEa) 1.2 mEq/L (0 (+/-) 2.5); CO2 Tension 37.7 mmHg (35.0-45.0); O2 Tension (PaO2) 57.3 mmHg (80.0-100.0); Puncture Site RRA; pH, Arterial 7.45 (7.35-7.45)
[2017-10-04 07:20] LABS: Hematocrit-ABG 25.2 % (42.0-52.0); Hemoglobin (Hb) 7.1 g/dL (14.0-18.0)
--- NOTE | 2017-10-04 07:58 | PDOC.PN ---
- Subjective Encounter Start Date: 10/04/17 Encounter Start Time: 07:55 Subjective: intubatged, sedated - Objective Resuscitation Status: Resuscitation Status FULL:Full Resuscitation MAR Reviewed: Yes Vital Signs & Weight: Vital Signs (12 hours) Temp Pulse Resp BP Pulse Ox 10/04/17 07:00 98.5 F 10/04/17 06:50 83 125/48 L 10/04/17 06:00 98.5 F 10/04/17 04:00 98.5 F 21 H 95 10/04/17 02:00 98.8 F 24 H Weight Weight 208 lb 15.971 oz Most Recent Monitor Data Heart Rate from ECG 76 NIBP 117/42 NIBP BP-Mean 69 Respiration from ECG 24 SpO2 96 I&O: 10/03/17 10/04/17 10/05/17 06:59 06:59 06:59 Intake Total 50 Output Total 740 75 Balance -690 -75 Result Diagrams: 10/03/17 23:06 10/03/17 20:18 Radiology Reviewed by me: Yes (cxr- ET tube, diffuse infiltrates) Phys Exam - Physical Examination Neck: no JVD scattered rhonchi Cardiovascular: irregular Gastrointestinal: soft, non-tender, positive bowel sounds Musculoskeletal: edema present Dx/Plan (1) Acute respiratory failure Code(s): J96.00 - ACUTE RESPIRATORY FAILURE, UNSP W HYPOXIA OR HYPERCAPNIA Status: Acute Qualifiers: Respiratory failure complication: hypoxia Qualified Code(s): J96.01 - Acute respiratory failure with hypoxia (2) Hemoptysis Code(s): R04.2 - HEMOPTYSIS Status: Acute (3) Pulmonary hemorrhage Code(s): R04.89 - HEMORRHAGE FROM OTHER SITES IN RESPIRATORY PASSAGES Status: Acute (4) Anticoagulant causing adverse effect in therapeutic use Code(s): T45.515A - ADVERSE EFFECT OF ANTICOAGULANTS, INITIAL ENCOUNTER Status : Acute Qualifiers: Encounter type: initial encounter Qualified Code(s): T45.515A - Adverse effect of anticoagulants, initial encounter (5) Anemia, posthemorrhagic, acute Code(s): D62 - ACUTE POSTHEMORRHAGIC ANEMIA Status: Acute (6) Afib Code(s): I48.91 - UNSPECIFIED ATRIAL FIBRILLATION Status: Acute Qualifiers: Atrial fibrillation type: chronic Qualified Code(s): I48.2 - Chronic atrial fibrillation Comment: in sinus now (7) CAD (coronary artery disease) Code(s): I25.10 - ATHSCL HEART DISEASE OF [place] CORONARY ARTERY W/O ANG PCTRS Status: Chronic Qualifiers: Coronary Disease-Associated Artery/Lesion type: [place] artery [place] vs. transplanted heart: [place] heart Associated angina: without angina Qualified Code(s): I25.10 - Atherosclerotic heart disease of [place] coronary artery without angina pectoris (8) Dyslipidemia Code(s): E78.5 - HYPERLIPIDEMIA, UNSPECIFIED Status: Chronic (9) HTN (hypertension) Code(s): I10 - ESSENTIAL (PRIMARY) HYPERTENSION Status: Chronic Qualifiers: - Plan on vent -discuss with staff nurse icu resource team -: hold xarelto, serial H&H, transfuse prn Hg< 7 -: serial PT/INR -: on iv vanc and levaquin * .
[2017-10-04 08:01] LABS: #Eosinphils 0.1 thou/uL (0.0-0.7); #Lymphocytes 1.1 thou/uL (1.20-3.40); #Monocytes 0.4 thou/uL (0.11-0.59); %Basophils 0.4 % (0.0-1.0); %Eosinophils 1.5 % (0.0-10.0); %Lymphocytes 16.7 % (21.0-51.0); %Monocytes 6.4 % (0.0-10.0); Hemoglobin 7.7 g/dL (14.0-18.0); Mean Corpuscular HGB CONC 33.2 g/dL (32.0-36.0); Mean Corpuscular Hemoglobin 28.9 pg (27.0-31.0); Mean Corpuscular Volume 87.1 fl (80.0-94.0); Mean Platelet Volume 8.4 fL (7.4-10.4); Platelet Count 223 thou/uL (130-400); RBC Distribution Width 15.7 % (11.5-14.5); Red Blood Cell (RBC) Count 2.65 mill/uL (4.70-6.10); White Blood Cell (WBC) Count 6.7 thou/uL (4.8-10.8)
[2017-10-04 08:10] LABS: Anion Gap 13 mmol/L (10-20); BUN (Urea Nitrogen) 21 mg/dL (8.4-25.7); Calc. Creatinine Clearance 80 mL/min (70-130); Calcium 7.3 mg/dL (7.8-10.44); Carbon Dioxide 23 mmol/L (23-31); Chloride 100 mmol/L (98-107); Estimated GFR-MDRD 61; Glucose 150 mg/dL (80-115); Potassium 3.6 mmol/L (3.5-5.1); Sodium 132 mmol/L (136-145)
[2017-10-04] MEDS ORDERED: Midazolam HCl 2 mg/2 ml Vial ONE (08:45)
[2017-10-04] MEDS ORDERED: EPINEPHrine 1 MG/10 ML Abboject SYRINGE ONE (08:51)
[2017-10-04] MEDS ORDERED: Midazolam HCl 2 mg/2 ml Vial SLOW IVP SCH (09:00)
[2017-10-04] MEDS ORDERED: Famotidine/PF 20 mg/2ml Vial SLOW IVP SCH (09:00)
[2017-10-04] MEDS ORDERED: Vancomycin HCl 1 GM in Sodium Chloride 0.9% 250 ML 250 ML IVPB SCH (09:00)
[2017-10-04] MEDS ORDERED: Pantoprazole 40 MG VIAL IVP SCH ×2 (09:30)
[2017-10-04] MEDS: Cefepime 1 GM, Admixture Fee 1 EACH in Sodium Chloride 0.9% 10 ML SLOW IVP SCH ×2 (09:41→21:59)
[2017-10-04] MEDS ORDERED: Morphine 4 MG/ML VIAL SLOW IVP PRN (09:44)
[2017-10-04] MEDS ORDERED: Propofol BOLUS 1,000 MG/100 ML VIAL IV PRN ×2 (09:44)
--- NOTE | 2017-10-04 09:44 | OP ---
DATE OF PROCEDURE: 10/04/2017 The patient is a 66-year-old gentleman. SURGEON: Dr. Dexter Boston PROCEDURE: Emergency bronchoscopy. INDICATIONS: Massive hemoptysis. POSTOPERATIVE DIAGNOSIS: Massive hemoptysis. PROCEDURE: Received informed consent from the and the patient. Prior to procedure he was given 2 of Versed. He is already on fentanyl drip at 100 mcg. The flexible bronchoscope was then passed using adapter in the endotracheal tube. Distal trachea and aron visualized, which had copious amou nts of blood. Most were in the right lung which was suctioned and lavaged until clear. The blood wa s pretty much bright red. Once the right lung was inspected and cleared of all the blood, no obviou s wheezing was seen. The left lung was inspected thereafter. There was also a moderate amount of br ight red blood, it was also suctioned and lavaged until clear. There was a little bit of oozing seen from the basilar segment, posterior medial. Mucosa was somewhat raw, but otherwise no obvious endob ronchial disease was seen. This area was also lavaged with normal saline until completely clear. Thomas th lungs were reinspected and relavaged until all the blood was cleared. A total of about 8 mL of 1: 10,000 epinephrine infiltrated in both lungs. Following this there was no further oozing seen. Both lungs were inspected again and completely clear. Washings will be sent for Gram stain and C&S. The patient otherwise tolerated the procedure well.
[2017-10-04 10:13] LABS: PTT 55.8 SEC (22.9-36.1)
[2017-10-04 10:18] LABS: INR-International Normal Ratio 2.4
[2017-10-04 10:36] LABS: ALT (SGPT) 37 U/L (8-55); AST (SGOT) 31 U/L (5-34); Albumin 2.8 g/dL (3.4-4.8); Alkaline Phosphatase 129 U/L (40-150); Bilirubin, Direct 0.5 mg/dL (0.1-0.3); Bilirubin, Total 0.9 mg/dL (0.2-1.2); Protein, Total 5.2 g/dL (5.8-8.1)
[2017-10-04 10:41] LABS: HIV (1/2) Antibody/Antigen Non-Reactive (NonReactive); Thyroid Stimulating Hormone 1.4065 uIU/mL (0.35-4.94)
[2017-10-04] MEDS: Hydrocortisone Sod Succ/PF 100 mg/2 ml Vial IVP SCH ×2 (12:02→18:45)
--- NOTE | 2017-10-04 12:24 | CON ---
DATE OF CONSULTATION: 10/04/2017 HISTORY: He is an unfortunate 66-year-old gentleman who has been in and out of this hospital now for the last several weeks. History obtained from the who states that he was recuperating at home early August after he had been in the rehab near [place] with neck and back surgery. When he de veloped some difficulty breathing he was brought from the ambulance near [place] to [facility]. He apparently was found to be in atrial fibrillation. He has recuperated here so Cardiology, was transferred to the rehab, he was taking Xarelto. Apparent ly over the last 2 days he has been having some hemoptysis and epistaxis. Yesterday his condition go t worse with more worsening hemoptysis. He was brought into the ER where x-ray shows diffuse pulmona ry infiltrates. He was apparently intubated, now in the ICU. There is still a large volume of blood coming out of his endotracheal tube. He was given a Kcentra x 1 and vitamin K 10 mg. His INR was apparently 4. His tells me that he quit smoking in 2014 following a bypass surgery. No history of significant alcohol abuse. No history of pneumonia, TB or asthma in the past, but he does have history of sleep apnea and wears a CPAP mask. PAST MEDICAL HISTORY: Pertinent for coronary artery disease, sleep apnea, atrial fibrillation. Prev ious peripheral vascular disease. PAST SURGICAL HISTORY: Include recently cervical surgery, lumbar surgery, previous CABG, apparently had inferior vena cava filter placed in somewhere down the line. ALCOHOL: Alcohol is noted 3-4 glasses a week. TOBACCO: Quit smoking in 2014. Smoked 40 years, a pack a day. MEDICATIONS: His medicine at the time of his discharge from this facility to the rehab here included aspirin, Lipitor 20, Coreg 6.25 twice a day, Flexeril 10 three times a day, Cardizem 90 three times a day, Multaq 400, Lasix 40, hydralazine 25. Oxycodone, Protonix 40, Lyrica 75, Xarelto 20 mg. ALLERGIES: PENICILLIN. SOCIAL/FAMILY HISTORY: Unremarkable. PHYSICAL EXAMINATION: GENERAL: He is on the vent on 100 fentanyl. He is awake, alert, responsive. VITAL SIGNS: Pulse 86, blood pressure 157/90, pulse 76, respirations 21. CHEST: Chest revealed bilateral rhonchi and crackles. CARDIAC: Sinus tachycardia. ABDOMEN: Soft. LABORATORY: White count 6000, H&H 7 and 23, platelet count 223. PO2 is 57, pCO2 37, pH 7.45, on a r ate of 16, 80%, 5 of PEEP. His electrolytes are normal. Sodium 132. IMPRESSION: 1. Respiratory failure secondary to bilateral interstitial infiltrates, probably pulmonary hemorrhag e. 2. Atrial fibrillation. 3. Inferior vena cava filter placement apparently in August. 4. Multiple surgeries, neck and back surgery. 5. Sleep apnea. 6. Tobacco abuse. 7. Coronary artery disease. 8. Hypercoagulable state with an INR of 4.2. PLAN: A diagnostic bronchoscopy will be performed followed by vent adjustment, antibiotics, steroids , nebulizer treatments. Further recommendations after above. Please note this is a critical care time 45 minutes, exclusive of the bronchoscopy.
--- NOTE | 2017-10-04 12:25 | RAD ---
CHEST ONE VIEW: HISTORY: Sepsis. COMPARISON: 10/03/2017 FINDINGS: Redemonstration of cervical fusion hardware, endotracheal tube, and nasogastric tube. There are ster notomy wires. Persistent opacification of the lung parenchyma with interstitial and alveolar infiltr ates. There is no pneumothorax. Stable configuration of the cardiac silhouette. IMPRESSION: Persistent multifocal opacities due to interstitial and alveolar infiltrates. POS: [facility]
[2017-10-04 12:54] LABS: Hemoglobin 8.4 g/dL (14.0-18.0); Platelet Count 262 thou/uL (130-400)
[2017-10-04 15:13] LABS: Hemoglobin 8.1 g/dL (14.0-18.0)
[2017-10-04] MEDS ORDERED: Cefepime 1 GM in Sodium Chloride 0.9% 100 ML IVPB SCH (21:00)
[2017-10-04 21:08] LABS: Hemoglobin 7.8 g/dL (14.0-18.0)
[2017-10-05 03:14] LABS: #Basophils 0.1 thou/uL (0.0-0.2); #Lymphocytes 0.8 thou/uL (1.20-3.40); #Monocytes 0.6 thou/uL (0.11-0.59); #Neutrophils 6.7 thou/uL (1.40-6.50); %Basophils 0.9 % (0.0-1.0); %Lymphocytes 10.1 % (21.0-51.0); %Monocytes 7.5 % (0.0-10.0); %Neutrophils 81.4 % (42.0-75.0); Hemoglobin 7.8 g/dL (14.0-18.0); Mean Corpuscular HGB CONC 34.7 g/dL (32.0-36.0); Mean Corpuscular Hemoglobin 29.8 pg (27.0-31.0); Mean Corpuscular Volume 85.7 fl (80.0-94.0); Mean Platelet Volume 7.7 fL (7.4-10.4); Platelet Count 243 thou/uL (130-400); RBC Distribution Width 15.9 % (11.5-14.5); Red Blood Cell (RBC) Count 2.63 mill/uL (4.70-6.10); White Blood Cell (WBC) Count 8.2 thou/uL (4.8-10.8)
[2017-10-05 03:29] LABS: INR-International Normal Ratio 1.7; PTT 43.4 SEC (22.9-36.1); Prothrombin Time 20.8 SEC (12.0-14.7)
[2017-10-05] MEDS: Hydrocortisone Sod Succ/PF 100 mg/2 ml Vial IVP SCH ×4 (04:19→17:54)
[2017-10-05 07:04] LABS: Anion Gap 10 mmol/L (10-20); BUN (Urea Nitrogen) 22 mg/dL (8.4-25.7); Calc. Creatinine Clearance 102 mL/min (70-130); Calcium 8.2 mg/dL (7.8-10.44); Carbon Dioxide 23 mmol/L (23-31); Chloride 104 mmol/L (98-107); Estimated GFR-MDRD 81; Glucose 126 mg/dL (80-115); Potassium 3.8 mmol/L (3.5-5.1); Sodium 133 mmol/L (136-145)
[2017-10-05] MEDS ORDERED: Furosemide 40 MG/4 ML VIAL SLOW IVP SCH (08:00)
--- NOTE | 2017-10-05 08:10 | PRG ---
DATE OF SERVICE: 10/05/2017 He is sedated on fentanyl, awake, alert, responsive. PHYSICAL EXAMINATION: VITAL SIGNS: Pulse is 78, blood pressure 166/61, sats are 90% on 40%, PEEP of 10, rate of 10. I's a nd O's are 2446 in, 1415 out. CHEST: Chest revealed bilateral crackles. CARDIAC: Normal S1, S2, no gallops. ABDOMEN: Soft, no masses. His INR is 1.7. White count 8000, H&H is 7 and 22, platelet count is 243. His electrolytes are norm al. Sodium 133. Albumin 2.4. TSH is normal. Liver function is normal. IMPRESSION: 1. Status post respiratory failure. 2. Pulmonary hemorrhage, probably aggravated by taking Xarelto. 3. Prolonged INR unknown etiology. 4. Possibly aspiration pneumonia. Bronch washings are not showing any staph. PLAN: Can discontinue vancomycin. Continue steroids, neb treatment, Maxipime and Levaquin. Will hold sedation today and try and wean and extubate. Additionally, echocardiogram shows decrease in LV function 35% during the previous admission, he was seen by Cardiology. We will get input from Cardiology to see why his EF is decreased compared to his previous recent admission. A trial of Lasix has been given. One-half hour critical care time.
[2017-10-05 08:18] LABS: Actual Bicarbonate (HCO3a) 22.1 mEq/L (22-26); Base Excess (BEa) -0.9 mEq/L (0 (+/-) 2.5); CO2 Tension 29.6 mmHg (35.0-45.0); O2 Tension (PaO2) 53.7 mmHg (80.0-100.0); pH, Arterial 7.49 (7.35-7.45)
[2017-10-05 08:19] LABS: Hematocrit-ABG 24.4 % (42.0-52.0); Hemoglobin (Hb) 7.4 g/dL (14.0-18.0)
[2017-10-05 08:20] LABS: Calcium, Ionized 1.2 mmol/L (1.12-1.30); Puncture Site RBA
[2017-10-05] MEDS: Pantoprazole 40 MG VIAL IVP SCH ×2 (08:30)
--- NOTE | 2017-10-05 08:35 | RAD ---
CHEST ONE VIEW: History: Ventilated patient. Comparison: Prior day. FINDINGS: Patient's endotracheal tube tip is just below the level of the clavicles in good position. Enteric tu be is in place with the tip below the diaphragm out of field of view. Perihilar and peripheral opacit ies are similar, as well as interstitial prominence. No pneumothorax. Limited evaluation of CF hardware. IMPRESSION: Unchanged examination of the chest. POS: [facility]
[2017-10-05] MEDS ORDERED: Pantoprazole 40 MG VIAL IVP SCH ×2 (09:00)
[2017-10-05] MEDS ORDERED: Phytonadione 5 MG in Sodium Chloride 0.9% 50 ML IVPB SCH (09:15)
[2017-10-05] MEDS: Sodium Chloride 0.9% 1,000 ML IV SCH ×2 (10:10→18:00)
[2017-10-05] MEDS: Cefepime 1 GM, Admixture Fee 1 EACH in Sodium Chloride 0.9% 10 ML SLOW IVP SCH ×2 (10:11→22:07)
--- NOTE | 2017-10-05 11:28 | PDOC.PN ---
- Subjective Encounter Start Date: 10/05/17 Encounter Start Time: 11:27 Subjective: extubated, no hemoptysis - Objective Resuscitation Status: Resuscitation Status FULL:Full Resuscitation MAR Reviewed: Yes Vital Signs & Weight: Vital Signs (12 hours) Temp Pulse Resp BP Pulse Ox 10/05/17 09:02 91 L 10/05/17 08:55 90 32 H 89 L 10/05/17 08:07 88 135/42 L 10/05/17 08:00 98.3 F 10/05/17 04:00 26 H 10/05/17 02:59 88 10/05/17 00:00 31 H Weight Admit Weight 209 lb Weight 208 lb 15.971 oz Most Recent Monitor Data Heart Rate from ECG 88 NIBP 149/53 NIBP BP-Mean 62 Respiration from ECG 23 SpO2 90 I&O: 10/04/17 10/05/17 10/06/17 06:59 06:59 06:59 Intake Total 50 2446.1 0 Output Total 740 1415 1200 Balance -690 1031.1 -1200 Result Diagrams: 10/05/17 03:10 10/05/17 03:10 Phys Exam - Physical Examination Neck: no JVD scattered rhonchi, good BS Cardiovascular: RRR, no significant murmur Gastrointestinal: soft, non-tender, positive bowel sounds Musculoskeletal: edema present Dx/Plan (1) Acute respiratory failure Code(s): J96.00 - ACUTE RESPIRATORY FAILURE, UNSP W HYPOXIA OR HYPERCAPNIA Status: Acute Qualifiers: Respiratory failure complication: hypoxia Qualified Code(s): J96.01 - Acute respiratory failure with hypoxia (2) Hemoptysis Code(s): R04.2 - HEMOPTYSIS Status: Acute (3) Pulmonary hemorrhage Code(s): R04.89 - HEMORRHAGE FROM OTHER SITES IN RESPIRATORY PASSAGES Status: Acute (4) Anticoagulant causing adverse effect in therapeutic use Code(s): T45.515A - ADVERSE EFFECT OF ANTICOAGULANTS, INITIAL ENCOUNTER Status : Acute Qualifiers: Encounter type: initial encounter Qualified Code(s): T45.515A - Adverse effect of anticoagulants, initial encounter (5) Anemia, posthemorrhagic, acute Code(s): D62 - ACUTE POSTHEMORRHAGIC ANEMIA Status: Acute (6) Afib Code(s): I48.91 - UNSPECIFIED ATRIAL FIBRILLATION Status: Acute Qualifiers: Atrial fibrillation type: chronic Qualified Code(s): I48.2 - Chronic atrial fibrillation Comment: in sinus now (7) CAD (coronary artery disease) Code(s): I25.10 - ATHSCL HEART DISEASE OF [place] CORONARY ARTERY W/O ANG PCTRS Status: Chronic Qualifiers: Coronary Disease-Associated Artery/Lesion type: [place] artery [place] vs. transplanted heart: [place] heart Associated angina: without angina Qualified Code(s): I25.10 - Atherosclerotic heart disease of [place] coronary artery without angina pectoris (8) Dyslipidemia Code(s): E78.5 - HYPERLIPIDEMIA, UNSPECIFIED Status: Chronic (9) HTN (hypertension) Code(s): I10 - ESSENTIAL (PRIMARY) HYPERTENSION Status: Chronic Qualifiers: Hypertension type: essential hypertension (10) Cardiomyopathy Code(s): I42.9 - CARDIOMYOPATHY, UNSPECIFIED Status: Acute Comment: LVEF 30- 35 % on echo (11) Atrial fibrillation and flutter Code(s): I48.91 - UNSPECIFIED ATRIAL FIBRILLATION; I48.92 - UNSPECIFIED ATRIAL FLUTTER Status: Acute - Plan extubated, stable on face mask O2 -: coagulopathy resolved -: will need to start his home meds slowly- multaqa, coreg, diltiazem , etc * .
[2017-10-05] MEDS: Morphine 4 MG/ML VIAL SLOW IVP PRN ×2 (13:26→21:01)
[2017-10-05] MEDS ORDERED: Potassium Chloride 40 MEQ in Premix Bag 1 BAG IVPB SCH (13:45)
--- NOTE | 2017-10-05 15:02 | CON ---
DATE OF CONSULTATION: 10/05/2017 REASON FOR CONSULTATION: Reduced left ventricular function. PRIMARY TEACHER OF GIFTED STUDENTS: Dr. Keon De La Torre. HISTORY OF PRESENT ILLNESS: Mr. Landry is a very pleasant 66-year-old white gentleman, who comes to the hospital for shortness of breath. He was seen about 2 weeks ago for atrial flutter, very fast he art rhythm to 100s. He was treated with Multaq and started on Xarelto for stroke prophylaxis and was discharged home. He had an echo at that time that showed an EF about 40-45%, discharged home. He c omes in today with increased shortness of breath. He was found to have severe hemoptysis. He was ta jose d to the bronchoscopy suite with Dr. Boston, who was able to remove a large amount of red blood on of his lungs making his respiratory status much better. Xarelto was stopped. A repeat echocardio gram was done and it showed an EF that had reduced at 30%-35%, so Cardiology is being consulted for leticia tong evaluation of this. On my evaluation, he is currently on a ventimask and still has a little b it of difficulty breathing, but is not in any distress. PAST SURGICAL HISTORY: 1. Coronary artery bypass grafting x3 in [place]. 2. Cervical lumbar spine surgery about 4 weeks ago. 3. Recent atrial flutter with rapid rates. OUTPATIENT MEDICATIONS: Include, 1. Protonix. 2. Xarelto 20 mg p.o. daily. 3. Aspirin 81 a day. 4. Lipitor 10 mg at bedtime. 5. Coreg 6.25 mg b.i.d. 6. Flexeril 10 mg 3 times a day, p.r.n. 7. Cardizem 90 mg 3 times a day. 8. Multaq 400 mg b.i.d. 9. Lasix 40 mg p.o. daily. 10. Hydralazine 25 mg 3 times a day. 11. Oxycodone p.r.n. 12. Protonix. 13. Lyrica 75 mg b.i.d. ALLERGIES: PENICILLIN. SOCIAL HISTORY: Drinks about 3-5 glasses of wine a week. No drug use. Quit smoking in 2014. PAST SURGICAL HISTORY: 1. C3 and C2 ACDF, L1 to L5 internal fixation, [facility] 3-4 weeks ago. 2. CABG x3 in 2015. FAMILY HISTORY: Noncontributory. REVIEW OF SYSTEMS: Twelve-point review of systems was done and is all negative unless stated in the history of present illness. PHYSICAL EXAMINATION: VITAL SIGNS: Temperature 97.8, pulse 96, respiratory rate 36, satting 90% on ventimask, blood pressu re 117/48. GENERAL: Awake, alert, oriented x3. HEENT: Normocephalic, atraumatic. NECK: Supple. LUNGS: Have reduced breath sounds bilaterally. CARDIOVASCULAR: S1 and S2, and no S3 or S4. Slightly tachycardic at 105. ABDOMEN: Soft, positive bowel sounds. EXTREMITIES: A 1+ edema bilaterally. SKIN: Warm and dry. LABORATORY WORK: Laboratory work was reviewed. CBC was reviewed. Hemoglobin went from 7.7 on admis wai, remains steady currently at 7.8. INR was 4.2 on admission, down to 1.7 now. Chemistries were reviewed. UA was reviewed. HIV was nonreactive. Echocardiogram was done yesterday and showed an EF of 30%-35%, which is a change from the previous on e at 40-45. Chest x-ray was reviewed. ASSESSMENT AND PLAN: 1. Pulmonary hemorrhage, which could be related to aspiration pneumonia, much worse in nature second emiliana to being on Xarelto. 2. Elevated INR, likely related to Xarelto use. This is not a typical thing for Xarelto. However, it is usually a marker that shows that the anti-Xa effect is there. It does not correlate with the e xtent of the anticoagulation. 3. Acute hypoxic respiratory insufficiency. Follow up with Dr. Boston. 4. New onset reduced left ventricular systolic function, now at 30%-35%. Plan: At this point, it w ould be prohibitive to do any sort of risk stratification with a heart catheterization, as if there i s a need for stents there will be thinning involved in with pulmonary hemorrhage. This would be cont raindicated at that time. I would just continue to treat with medications. His blood pressure is violette rderline at that time, and I would not be able to titrate any heart failure medications. We will adonay t for him to be more stable before up titrating any heart failure medications. 5. Coronary artery disease: Status post bypass in 2015, not having an ACS at that time. 6. Possible pneumonia per primary team. Thank you for letting us participate in the care of your patient. We will follow. Over 30 minutes were spent at bedside in critical care time.
[2017-10-05] MEDS: Carvedilol 6.25 MG TAB PO SCH (17:47)
[2017-10-05] MEDS: Atorvastatin Calcium 20 MG TAB PO SCH (21:00)
[2017-10-06] MEDS: Morphine 4 MG/ML VIAL SLOW IVP PRN ×5 (03:43→22:33)
[2017-10-06 05:04] LABS: #Eosinphils 0.1 thou/uL (0.0-0.7); #Lymphocytes 1.2 thou/uL (1.20-3.40); #Monocytes 0.8 thou/uL (0.11-0.59); #Neutrophils 6.5 thou/uL (1.40-6.50); %Basophils 0.1 % (0.0-1.0); %Eosinophils 0.6 % (0.0-10.0); %Lymphocytes 13.6 % (21.0-51.0); %Monocytes 9.1 % (0.0-10.0); %Neutrophils 76.6 % (42.0-75.0); Hemoglobin 8.1 g/dL (14.0-18.0); Mean Corpuscular HGB CONC 33.9 g/dL (32.0-36.0); Mean Corpuscular Volume 85.7 fl (80.0-94.0); Mean Platelet Volume 7.4 fL (7.4-10.4); Platelet Count 265 thou/uL (130-400); RBC Distribution Width 16.1 % (11.5-14.5); White Blood Cell (WBC) Count 8.5 thou/uL (4.8-10.8)
[2017-10-06 05:20] LABS: Anion Gap 8 mmol/L (10-20); BUN (Urea Nitrogen) 23 mg/dL (8.4-25.7); Calc. Creatinine Clearance 112 mL/min (70-130); Calcium 8.3 mg/dL (7.8-10.44); Carbon Dioxide 27 mmol/L (23-31); Chloride 105 mmol/L (98-107); Estimated GFR-MDRD 90; Glucose 92 mg/dL (80-115); Potassium 3.2 mmol/L (3.5-5.1); Sodium 137 mmol/L (136-145)
[2017-10-06 05:21] LABS: INR-International Normal Ratio 1.3; PTT 33.7 SEC (22.9-36.1); Prothrombin Time 16.9 SEC (12.0-14.7)
[2017-10-06] MEDS: Hydrocortisone Sod Succ/PF 100 mg/2 ml Vial IVP SCH ×2 (05:54)
[2017-10-06] MEDS: Sodium Chloride 0.9% 1,000 ML IV SCH ×3 (05:54→20:38)
[2017-10-06] MEDS: Carvedilol 6.25 MG TAB PO SCH ×2 (08:45→18:01)
[2017-10-06] MEDS: Pantoprazole 40 MG VIAL IVP SCH ×2 (08:45)
--- NOTE | 2017-10-06 09:37 | RAD ---
AP VIEW CHEST: HISTORY: Ventilator-dependent patient. FINDINGS: AP view chest is obtained on 10/06/17. Comparison is made to previous exam from 10/05/17. AP view chest demonstrates sternotomy wires again seen. ACDF plates and screws in place. The patient has been extubated. Cardiomegaly is seen. Pulmonary vascular congestion is seen. There are diffuse interstitial and ground-glass opacities throughout the lungs compatible with pneumo saira and possible changes of ARDS unchanged since the previous exam. NG tube has also been removed. IMPRESSION: Interval extubation of the patient and removal of the nasogastric tube. No other significant interva l changes seen. POS: [facility]
[2017-10-06] MEDS: Cefepime 1 GM, Admixture Fee 1 EACH in Sodium Chloride 0.9% 10 ML SLOW IVP SCH ×2 (10:11→22:20)
--- NOTE | 2017-10-06 10:30 | PDOC.PN ---
- Subjective Encounter Start Date: 10/06/17 Encounter Start Time: 10:28 Subjective: less sob, no hemoptysis - Objective Resuscitation Status: Resuscitation Status FULL:Full Resuscitation MAR Reviewed: Yes Vital Signs & Weight: Vital Signs (12 hours) Temp Pulse Resp Pulse Ox 10/06/17 08:48 98.1 F 10/06/17 06:36 91 L 10/06/17 06:34 91 33 H 91 L 10/06/17 04:00 98.9 F 10/06/17 00:00 98.6 F Weight Admit Weight 209 lb Weight 208 lb 15.971 oz Most Recent Monitor Data Heart Rate from ECG 88 NIBP 168/60 NIBP BP-Mean 97 Respiration from ECG 35 SpO2 91 I&O: 10/05/17 10/06/17 10/07/17 06:59 06:59 06:59 Intake Total 2446.1 2725 Output Total 1415 4916 380 Balance 1031.1 -2191 -380 Result Diagrams: 10/06/17 04:42 10/06/17 04:42 Radiology Reviewed by me: Yes (cxr- difffuse ifiltrates persist) Phys Exam - Physical Examination Neck: no JVD Respiratory: clear to auscultation bilateral Cardiovascular: no significant murmur Gastrointestinal: soft, non-tender, positive bowel sounds Musculoskeletal: edema present Dx/Plan (1) Acute respiratory failure Code(s): J96.00 - ACUTE RESPIRATORY FAILURE, UNSP W HYPOXIA OR HYPERCAPNIA Status: Acute Qualifiers: Respiratory failure complication: hypoxia Qualified Code(s): J96.01 - Acute respiratory failure with hypoxia (2) Hemoptysis Code(s): R04.2 - HEMOPTYSIS Status: Resolved (3) Pulmonary hemorrhage Code(s): R04.89 - HEMORRHAGE FROM OTHER SITES IN RESPIRATORY PASSAGES Status: Resolved (4) Anticoagulant causing adverse effect in therapeutic use Code(s): T45.515A - ADVERSE EFFECT OF ANTICOAGULANTS, INITIAL ENCOUNTER Status : Acute Qualifiers: Encounter type: initial encounter Qualified Code(s): T45.515A - Adverse effect of anticoagulants, initial encounter (5) Anemia, posthemorrhagic, acute Code(s): D62 - ACUTE POSTHEMORRHAGIC ANEMIA Status: Acute (6) Afib Code(s): I48.91 - UNSPECIFIED ATRIAL FIBRILLATION Status: Acute Qualifiers: Atrial fibrillation type: chronic Qualified Code(s): I48.2 - Chronic atrial fibrillation Comment: in sinus now (7) CAD (coronary artery disease) Code(s): I25.10 - ATHSCL HEART DISEASE OF [place] CORONARY ARTERY W/O ANG PCTRS Status: Chronic Qualifiers: Coronary Disease-Associated Artery/Lesion type: [place] artery [place] vs. transplanted heart: [place] heart Associated angina: without angina Qualified Code(s): I25.10 - Atherosclerotic heart disease of [place] coronary artery without angina pectoris (8) Dyslipidemia Code(s): E78.5 - HYPERLIPIDEMIA, UNSPECIFIED Status: Chronic (9) HTN (hypertension) Code(s): I10 - ESSENTIAL (PRIMARY) HYPERTENSION Status: Chronic Qualifiers: Hypertension type: essential hypertension (10) Cardiomyopathy Code(s): I42.9 - CARDIOMYOPATHY, UNSPECIFIED Status: Acute Comment: LVEF 30- 35 % on echo (11) Atrial fibrillation and flutter Code(s): I48.91 - UNSPECIFIED ATRIAL FIBRILLATION; I48.92 - UNSPECIFIED ATRIAL FLUTTER Status: Acute - Plan steady improvement. cont off xaelto -: cont iv antibx -: reinstitute multaq -: discuss with pulmonology, cardiology * .
[2017-10-06] MEDS ORDERED: Potassium Chloride 20 MEQ TAB PO SCH ×2 (11:00)
--- NOTE | 2017-10-06 11:19 | PDOC.CTH ---
Cardiology Progress Note - Subjective No new issues. He continues to have difficulty breathing but minimal blood now. - Objective Vital Signs Temp Pulse Resp Pulse Ox 10/06/17 08:48 98.1 F 10/06/17 08:00 98.1 F 93 30 H 90 L 10/06/17 06:36 91 L 10/06/17 06:34 91 33 H 91 L 10/06/17 04:00 98.9 F 10/06/17 00:00 98.6 F Admit Weight 209 lb Weight 208 lb 15.971 oz 10/05/17 10/06/17 10/07/17 06:59 06:59 06:59 Intake Total 2446.1 2725 Output Total 141 4916 380 Balance 1031.1 -8014 -752 - Physical Examination General/Neuro: alert & oriented x3 Neck: no JVD present Lungs: other: (Coarse bilat) Heart: RRR Abdomen: NT/ND Extremities: other: (no edema.) - Telemetry Telemetry Rhythm: NSR - Labs Result Diagrams: 10/06/17 04:42 10/06/17 04:42 Troponin/CKMB CK-MB (CK-2) 2.8 ng/mL (0-6.6) 10/03/17 20:18 Troponin I 0.016 ng/mL (< 0.028) 10/03/17 20:18 - Assessment/Plan 1. Hemoptysis 2. Pulmonary hemorrhage 3. Pneumonia 4. Paroxysmal afib 5. Decreased LV function at 30-35% PLAN: - His CXR seems unchanged from yesterday and may have a component of heart failure. Will give one dose of IV lasix today see if he improves. - Conitnue othe rmeds.
[2017-10-06] MEDS ORDERED: Furosemide 40 MG/4 ML VIAL SLOW IVP SCH (11:30)
[2017-10-06 12:18] LABS: Vancomycin, Trough 3.4 ug/mL
[2017-10-06] MEDS ORDERED: Dronedarone HCl 400 MG TAB PO SCH (17:00)
[2017-10-06] MEDS: Atorvastatin Calcium 20 MG TAB PO SCH (20:45)
--- NOTE | 2017-10-06 22:01 | PRG ---
DATE OF SERVICE: 10/06/2017 SUBJECTIVE: Hai Landry is in no distress. He has no post-extubation stridor or dyspnea. He actu ally says he wants to go home, but also says he realizes he cannot. OBJECTIVE: VITAL SIGNS: He is afebrile, heart rates in the 90s in sinus rhythm, blood pressure 116/64, respirat ory rate is 22-26, oximetry is 97% on facemask today. His intake and output was negative 2191. LUNGS: Clear anteriorly, but he has crackles at his bases. HEART: Regular rhythm. S1 and S2 are normal. ABDOMEN: Soft and nontender. EXTREMITIES: With asymmetry. He is moving all extremities. LABORATORY DATA: White count 8.5, hemoglobin 8.1, platelets 265. Sodium 137, potassium 3.2, chloride 105, bicarb 27, BUN 23, creatinine 0.85. IMPRESSION: 1. Alveolar hemorrhage. 2. ? aspiration pneumonia. PLAN: Continue antimicrobial therapy. His cardiomyopathy may contribute to his alveolar hemorrhage, ejection fraction still 30% to 35%, so probably is anticoagulation with volume overload led to his a lveolar hemorrhage. He is stable to move out of the critical care unit to the intermediate care unit in my opinion.
[2017-10-07] MEDS: Morphine 4 MG/ML VIAL SLOW IVP PRN ×3 (00:29→06:08)
[2017-10-07 04:21] LABS: #Monocytes 0.6 thou/uL (0.11-0.59); #Neutrophils 6.5 thou/uL (1.40-6.50); %Basophils 0.2 % (0.0-1.0); %Eosinophils 0.4 % (0.0-10.0); %Lymphocytes 12.4 % (21.0-51.0); %Monocytes 7.4 % (0.0-10.0); %Neutrophils 79.6 % (42.0-75.0); Mean Corpuscular HGB CONC 33.7 g/dL (32.0-36.0); Mean Corpuscular Hemoglobin 28.9 pg (27.0-31.0); Mean Corpuscular Volume 85.8 fl (80.0-94.0); Mean Platelet Volume 7.2 fL (7.4-10.4); Platelet Count 257 thou/uL (130-400); RBC Distribution Width 16.1 % (11.5-14.5); Red Blood Cell (RBC) Count 2.78 mill/uL (4.70-6.10); White Blood Cell (WBC) Count 8.2 thou/uL (4.8-10.8)
[2017-10-07 04:29] LABS: INR-International Normal Ratio 1.4; Prothrombin Time 16.9 SEC (12.0-14.7)
[2017-10-07 04:37] LABS: Anion Gap 8 mmol/L (10-20); BUN (Urea Nitrogen) 20 mg/dL (8.4-25.7); Calc. Creatinine Clearance 116 mL/min (70-130); Calcium 8.1 mg/dL (7.8-10.44); Carbon Dioxide 27 mmol/L (23-31); Chloride 104 mmol/L (98-107); Estimated GFR-MDRD Greater than 90; Glucose 101 mg/dL (80-115); Potassium 3.6 mmol/L (3.5-5.1); Sodium 135 mmol/L (136-145)
[2017-10-07] MEDS: Carvedilol 6.25 MG TAB PO SCH ×2 (08:27→16:27)
[2017-10-07] MEDS: predniSONE 20 MG TAB PO SCH (08:27)
[2017-10-07] MEDS: Sodium Chloride 0.9% 1,000 ML IV SCH (09:38)
[2017-10-07 09:46] LABS: Iron 19 ug/dL (65-175); Iron Binding Capacity, Total 193 mcg/dL (261-462)
[2017-10-07] MEDS: Cefepime 1 GM, Admixture Fee 1 EACH in Sodium Chloride 0.9% 10 ML SLOW IVP SCH ×2 (10:15→22:25)
--- NOTE | 2017-10-07 10:29 | RAD ---
AP VIEW OF THE CHEST: INDICATION: Intubation. COMPARISON: Prior exam dated 10/06/17. FINDINGS: The diffuse airspace opacities are stable. There is more prominent consolidation now present within the left lower lobe however. ACDF is stable. Post-CABG change is stable. Cardiomegaly persists. IMPRESSION: 1. Worsening consolidation in the left lower lobe suspicious for worsening developing pneumonia. 2. Diffuse airspace opacities possibly related to hemorrhage, edema, or pneumonia are similar. 3. Persistent cardiomegaly. POS: [facility]
--- NOTE | 2017-10-07 10:50 | ULT ---
RENAL ULTRASOUND: INDICATION: Acute renal injury versus chronic kidney disease. FINDINGS: The right kidney measures 10.5 x 4.6 x 4.3 cm. The left kidney measures 10.6 x 6.0 x 5.3 cm. The le ft renal cortical thickness was 1.6 cm. The right renal cortical thickness was 1.5 cm. Rose catheter is seen within the decompressed bladder. IMPRESSION: 1. No focal renal lesion or hydronephrosis. 2. Rose catheter. POS: [facility]
--- NOTE | 2017-10-07 11:42 | PDOC.PN ---
- Subjective Encounter Start Date: 10/07/17 Encounter Start Time: 11:41 Patient seen and examined, no new issues or complaints. - Objective Resuscitation Status: Resuscitation Status FULL:Full Resuscitation Vital Signs & Weight: Vital Signs (12 hours) Temp Pulse Resp BP BP Pulse Ox 10/07/17 11:10 97.1 F L 10/07/17 10:29 86 84 H 94 L 10/07/17 10:22 88 26 H 151/48 H 89 L 10/07/17 08:27 168/65 H 10/07/17 07:54 99.2 F 96 22 H 91 L 10/07/17 07:16 99.2 F 96 22 H 156/63 H 93 L 10/07/17 06:07 93 23 H 93 L 10/07/17 05:25 98.6 F 10/07/17 04:02 100.6 F H 88 28 H 147/54 H 96 10/07/17 00:23 91 10/07/17 00:15 99.6 F 97 26 H 169/59 H 94 L Weight Admit Weight 209 lb Weight 214 lb 1 oz Most Recent Monitor Data Heart Rate from ECG 106 NIBP 176/68 NIBP BP-Mean 96 Respiration from ECG 38 SpO2 86 I&O: 10/06/17 10/07/17 10/08/17 06:59 06:59 06:59 Intake Total 2725 2390 10 Output Total 4916 1830 Balance -2191 560 10 Result Diagrams: 10/07/17 03:50 10/07/17 03:30 Dx/Plan (1) Acute respiratory failure Code(s): J96.00 - ACUTE RESPIRATORY FAILURE, UNSP W HYPOXIA OR HYPERCAPNIA Status: Acute Qualifiers: Respiratory failure complication: hypoxia Qualified Code(s): J96.01 - Acute respiratory failure with hypoxia (2) Atrial fibrillation and flutter Code(s): I48.91 - UNSPECIFIED ATRIAL FIBRILLATION; I48.92 - UNSPECIFIED ATRIAL FLUTTER Status: Acute (3) Physical deconditioning Code(s): R53.81 - OTHER [place] Status: Acute (4) CAD (coronary artery disease) Code(s): I25.10 - ATHSCL HEART DISEASE OF [place] CORONARY ARTERY W/O ANG PCTRS Status: Chronic Qualifiers: Coronary Disease-Associated Artery/Lesion type: [place] artery [place] vs. transplanted heart: [place] heart Associated angina: without angina Qualified Code(s): I25.10 - Atherosclerotic heart disease of [place] coronary artery without angina pectoris (5) Dyslipidemia Code(s): E78.5 - HYPERLIPIDEMIA, UNSPECIFIED Status: Chronic (6) HTN (hypertension) Code(s): I10 - ESSENTIAL (PRIMARY) HYPERTENSION Status: Chronic Qualifiers: Hypertension type: essential hypertension Qualified Code(s): I10 - Essential (primary) hypertension - Plan * saturating well today, will move to telemetry floor if pulmonary deems patient stable as well, patient's O2 sats were in the upper 80s yesterday * continue current plan of care for now * [facility] for pain control per patient wishes * case and plan d/w patient and at length, they understand and agree with this plan
[2017-10-07] MEDS: HYDROcodone/Acetaminophen 5/325 mg Tablet PO PRN ×2 (11:46→19:54)
--- NOTE | 2017-10-07 14:39 | PDOC.CTH ---
Cardiology Progress Note - Subjective No new issues. He is still SOB at rest needing high flow oxygen supplementation. Slight improvement on breathing today, No more hemoptysis. - Objective Vital Signs Temp Pulse Pulse Pulse Resp BP BP 10/07/17 13:49 84 24 H 10/07/17 12:01 10/07/17 11:10 97.1 F L 10/07/17 10:29 86 84 H 10/07/17 10:22 88 26 H 10/07/17 08:27 168/65 H 10/07/17 08:22 107 H 98 150/62 H 10/07/17 07:54 99.2 F 96 22 H 10/07/17 07:16 99.2 F 96 22 H 10/07/17 06:07 93 23 H 10/07/17 05:25 98.6 F 10/07/17 04:02 100.6 F H 88 28 H BP BP Pulse Ox Pulse Ox Pulse Ox 10/07/17 13:49 92 L 10/07/17 12:01 94 L 10/07/17 11:10 10/07/17 10:29 94 L 10/07/17 10:22 151/48 H 89 L 10/07/17 08:27 10/07/17 08:22 160/52 H 77 L 91 L 10/07/17 07:54 91 L 10/07/17 07:16 156/63 H 93 L 10/07/17 06:07 93 L 10/07/17 05:25 10/07/17 04:02 147/54 H 96 Admit Weight 209 lb Weight 214 lb 1 oz 10/06/17 10/07/17 10/08/17 06:59 06:59 06:59 Intake Total 2725 2390 250 Output Total 4916 1830 Balance -2191 560 250 - Physical Examination General/Neuro: alert & oriented x3 Neck: no JVD present Lungs: other: (Coarse bilat. ) Heart: RRR Abdomen: NT/ND Extremities: + edema B (1+) - Telemetry Telemetry Rhythm: NSR - Labs Result Diagrams: 10/07/17 03:50 10/07/17 03:30 Troponin/CKMB CK-MB (CK-2) 2.8 ng/mL (0-6.6) 10/03/17 20:18 Troponin I 0.016 ng/mL (< 0.028) 10/03/17 20:18 - Assessment/Plan 1. Hemoptysis 2. Pulmonary hemorrhage 3. Pneumonia 4. Paroxysmal afib 5. Decreased LV function at 30-35% PLAN: - CXR reviewed today and unchanged. - Will schedule IV lasix. - Continue other meds.
[2017-10-07] MEDS ORDERED: Furosemide 100 MG/10 ML VIAL SLOW IVP SCH (14:45)
--- NOTE | 2017-10-07 15:47 | PRG ---
DATE OF SERVICE: 10/07/2017 OBJECTIVE: VITAL SIGNS: Mr. Landry is afebrile, heart rate is 84, respiratory rate 24, oximetry is 92, blood pr essure 151/48. LUNGS: Clear. HEART: Regular rhythm. ABDOMEN: Soft. He wants his C-collar off. I have asked his to call his neurosurgeon in [place] tomorrow gerardo stallings and ask her if it is okay to take it off. I think this might be a few days early, but he is edgar stallings close to the six week felix. LABORATORY DATA: His white count is 8.2, hemoglobin 8, platelets 257. Sodium 135, potassium 3.6, ch loride 104, bicarbonate 27, BUN 20, creatinine 0.82. IMPRESSION: 1. Alveolar hemorrhage, clinically improving slowly. 2. Status post cervical and lumbar spine surgery. See if we can remove the c-collar tomorrow. 3. Hypoxemia. I would be hesitant to restart anticoagulants with his ongoing high oxygen requiremen ts. 4. Decreased left ventricular systolic function with an ejection fraction of 30%-35%. PLAN: Continue to care for him as we are doing. We will see if we can remove the C-collar. I revie wed his radiograph and it has not changed much, which is what I would expect with alveolar hemorrhage . He is diuresed 2 liters yesterday and is plus 500 today. I would expect some improvement in his radi ograph, but it will take a while since the majority of this is pulmonary hemorrhage.
[2017-10-07] MEDS: Atorvastatin Calcium 20 MG TAB PO SCH (20:48)
[2017-10-08] MEDS: HYDROcodone/Acetaminophen 5/325 mg Tablet PO PRN ×3 (04:08→21:28)
[2017-10-08 04:42] LABS: #Eosinphils 0.1 thou/uL (0.0-0.7); #Lymphocytes 0.8 thou/uL (1.20-3.40); #Monocytes 0.6 thou/uL (0.11-0.59); #Neutrophils 7.3 thou/uL (1.40-6.50); %Basophils 0.2 % (0.0-1.0); %Eosinophils 0.8 % (0.0-10.0); %Lymphocytes 9.3 % (21.0-51.0); %Neutrophils 82.7 % (42.0-75.0); Hemoglobin 8.1 g/dL (14.0-18.0); Mean Corpuscular Hemoglobin 28.3 pg (27.0-31.0); Mean Corpuscular Volume 85.9 fl (80.0-94.0); Mean Platelet Volume 7.3 fL (7.4-10.4); Platelet Count 252 thou/uL (130-400); RBC Distribution Width 15.9 % (11.5-14.5); Red Blood Cell (RBC) Count 2.84 mill/uL (4.70-6.10); White Blood Cell (WBC) Count 8.8 thou/uL (4.8-10.8)
[2017-10-08] MEDS: Furosemide 40 MG/4 ML VIAL SLOW IVP SCH ×2 (05:26→14:27)
[2017-10-08] MEDS: predniSONE 20 MG TAB PO SCH (08:22)
[2017-10-08] MEDS: Carvedilol 6.25 MG TAB PO SCH ×2 (08:22→16:52)
[2017-10-08] MEDS: Cefdinir 300 MG CAP PO SCH ×4 (08:34→21:27)
--- NOTE | 2017-10-08 08:42 | PRG ---
DATE OF SERVICE: 10/08/2017 This morning the patient is awake, alert, responsive. Sats are still 88. Still coughing some blood. I am surprised the x-ray shows bilateral infiltrates. PHYSICAL EXAMINATION: VITAL SIGNS: Sats are 90% on BiPAP, blood pressure 150/89, temperature 99, respiration rate 18, puls e 80. CHEST: Chest reveals bilateral crackles. CARDIAC: Normal S1, S2. ABDOMEN: Soft, no masses. LABORATORY DATA: White count 8000, H&H 8 and 24, platelet count normal. Electrolytes are normal. IMPRESSION: 1. Status post respiratory failure. 2. Pulmonary hemorrhage, probably secondary to Xarelto. PLAN: Switch over to oral antibiotics, neb treatments, PT. The patient says his collar has been there since the surgery. He probably would like to take it out. He was told to contact his neurosurgeon to get his opinion.
--- NOTE | 2017-10-08 12:12 | PRG ---
DATE OF SERVICE: 10/08/2017 SUBJECTIVE: Mr. Landry is doing better today. He is up walking with rehabilitation sitting in a feli ir. He is not short of breath. PHYSICAL EXAMINATION: VITAL SIGNS: Blood pressure is 157/54, pulse is 80. LUNGS: Clear. CARDIAC: Normal S1, normal S2. ABDOMEN: Soft, nontender. EXTREMITIES: No edema. ASSESSMENT: 1. Congestive heart failure, chronic, systolic, stable. 2. Recent hemoptysis. 3. Recent surgery. PLAN: 1. Continue furosemide. 2. Continue beta noemy. 3. Need to add MAGALY inhibitors or angiotensin receptor blockers. We will start that tomorrow.
[2017-10-08 16:13] LABS: Cytoplasmic (C-ANCA) <1:20 titer (Neg:<1:20); Myeloperoxidase AutoAbs <9.0 U/mL (0.0-9.0); Perinuclear (P-ANCA) <1:20 titer (Neg:<1:20); Proteinase-3 AutoAbs Less than 3.5 U/mL (0.0-3.5)
[2017-10-08] MEDS ORDERED: Potassium Chloride 20 MEQ TAB PO SCH ×2 (17:00)
[2017-10-08] MEDS: Atorvastatin Calcium 20 MG TAB PO SCH (21:28)
--- NOTE | 2017-10-08 21:50 | PDOC.PN ---
- Subjective Encounter Start Date: 10/08/17 Encounter Start Time: 16:30 Patient seen and examined. No new complaints. No overnight events - Objective Resuscitation Status: Resuscitation Status FULL:Full Resuscitation MAR Reviewed: Yes Vital Signs & Weight: Vital Signs (12 hours) Temp Pulse Resp BP BP Pulse Ox 10/08/17 20:00 98.5 F 79 18 129/39 L 90 L 10/08/17 18:10 83 18 911 H 10/08/17 16:52 145/43 H 10/08/17 15:24 99.1 F 81 30 H 139/48 L 90 L 10/08/17 14:03 92 18 94 L 10/08/17 12:00 95 10/08/17 11:02 98.9 F 78 34 H 121/49 L 90 L 10/08/17 10:40 79 20 89 L Weight Admit Weight 209 lb Weight 213 lb 3.2 oz Most Recent Monitor Data Heart Rate from ECG 106 NIBP 176/68 NIBP BP-Mean 96 Respiration from ECG 38 SpO2 86 I&O: 10/07/17 10/08/17 10/09/17 06:59 06:59 06:59 Intake Total 2390 1008 974 Output Total 1830 4150 2650 Balance 671 -5218 -6618 Result Diagrams: 10/09/17 04:31 10/09/17 04:31 Radiology Reviewed by me: Yes (CXR - ?infiltrate) Phys Exam - Physical Examination Constitutional: NAD Respiratory: no wheezing, no rhonchi Bibasilar rales Cardiovascular: no rub, irregular Gastrointestinal: soft, non-tender, positive bowel sounds Neurological: moves all 4 limbs Dx/Plan - Plan DVT proph w/SCDs IMPRESSION: 1. Acute hypoxic resp failure/Hemoptysis 2. Chronic systolic heart failure 3. Afib 4. Obesity BMI 30.1 5. Physical deconditioning / CAD / Other issues per previous notes PLAN: * Cont diuretics/Atbx/Steroids * Cardio/Pulm following * AM labs * Cont current meds as below Review of Systems - Review of Systems Constitutional: negative: fever, chills, sweats, weakness, malaise, other Cardiovascular: negative: chest pain, palpitations, orthopnea, paroxysmal nocturnal dyspnea, edema, light headedness, other Gastrointestinal: negative: Nausea, Vomiting, Abdominal Pain, Diarrhea, Constipation, Melena, Hematochezia, Other - Medications/Allergies Allergies/Adverse Reactions: Allergies Allergy/AdvReac Type Severity Reaction Status Date / Time Penicillins Allergy Verified 09/24/17 09:50 Medications: Current Medications Famotidine (Pepcid) 20 mg SLOW IVP Q12HR [facility] Last Admin: 10/04/17 09:22 Dose: Not Given Fentanyl Citrate 2,000 mcg/ (Sodium Chloride) 100 mls @ 0 mls/hr IV INF [facility]; Per Protocol PRN Reason: Protocol Stop: 11/02/17 23:00 Last Admin: 10/04/17 14:53 Dose: 100 mls Miscellaneous Medication 2,608 unit/ Miscellaneous Medication mls @ 0 mls/hr IV NOW [facility] PRN Reason: As Directed Stop: 10/04/17 04:00 Last Admin: 10/04/17 06:59 Dose: Not Given Levofloxacin 750 mg/ Device 150 mls @ 100 mls/hr IVPB Q24HR [facility] Last Admin: 10/07/17 20:54 Dose: 150 mls Norepinephrine Bitartrate (Levophed) 250 mls @ 0 mls/hr IVPB INF [facility]; Titrate PRN Reason: Protocol Sodium Chloride (Normal Saline 0.9%) 1,000 mls @ 0 mls/hr IV .Q0M [facility] PRN Reason: As Directed Sodium Chloride (Normal Saline 0.9%) 1,000 mls @ 100 mls/hr IV .Q10H [facility] Last Admin: 10/07/17 09:38 Dose: Not Given Vancomycin HCl 1 gm/ Sodium (Chloride) 250 mls @ 166.67 mls/hr IVPB Q12HR [facility] Last Admin: 10/04/17 20:47 Dose: Not Given Phytonadione 10 mg/ Sodium (Chloride) 51 mls @ 153 mls/hr IVPB NOW [facility] Stop: 10/04/17 03:15 Last Admin: 10/04/17 02:00 Dose: 51 mls
[2017-10-09 04:49] LABS: #Eosinphils 0.1 thou/uL (0.0-0.7); #Lymphocytes 1.2 thou/uL (1.20-3.40); #Monocytes 0.8 thou/uL (0.11-0.59); #Neutrophils 7.1 thou/uL (1.40-6.50); %Basophils 0.3 % (0.0-1.0); %Eosinophils 1.3 % (0.0-10.0); %Lymphocytes 12.5 % (21.0-51.0); %Monocytes 8.7 % (0.0-10.0); %Neutrophils 77.1 % (42.0-75.0); Hemoglobin 8.8 g/dL (14.0-18.0); Mean Corpuscular HGB CONC 33.3 g/dL (32.0-36.0); Mean Corpuscular Hemoglobin 28.4 pg (27.0-31.0); Mean Corpuscular Volume 85.5 fl (80.0-94.0); Mean Platelet Volume 7.6 fL (7.4-10.4); Platelet Count 284 thou/uL (130-400); RBC Distribution Width 15.9 % (11.5-14.5); White Blood Cell (WBC) Count 9.2 thou/uL (4.8-10.8)
[2017-10-09] MEDS: HYDROcodone/Acetaminophen 5/325 mg Tablet PO PRN ×2 (05:07→21:04)
[2017-10-09] MEDS: Furosemide 40 MG/4 ML VIAL SLOW IVP SCH (05:08)
[2017-10-09 05:13] LABS: Anion Gap 11 mmol/L (10-20); BUN (Urea Nitrogen) 29 mg/dL (8.4-25.7); Calc. Creatinine Clearance 109 mL/min (70-130); Calcium 8.6 mg/dL (7.8-10.44); Carbon Dioxide 28 mmol/L (23-31); Chloride 98 mmol/L (98-107); Estimated GFR-MDRD 85; Glucose 96 mg/dL (80-115); Magnesium 1.7 mg/dL (1.6-2.6); Phosphorus 3.3 mg/dL (2.3-4.7); Potassium 3.1 mmol/L (3.5-5.1); Sodium 134 mmol/L (136-145)
[2017-10-09] MEDS: Potassium Chloride 20 MEQ TAB PO SCH ×4 (07:41→17:11)
[2017-10-09] MEDS: predniSONE 20 MG TAB PO SCH (07:41)
[2017-10-09] MEDS: Carvedilol 6.25 MG TAB PO SCH ×2 (07:41→17:11)
[2017-10-09] MEDS: Losartan 25 MG TAB PO SCH ×2 (07:42)
[2017-10-09] MEDS: Cefdinir 300 MG CAP PO SCH ×4 (07:42→21:00)
--- NOTE | 2017-10-09 07:59 | PDOC.PN ---
- Subjective Encounter Start Date: 10/09/17 Encounter Start Time: 07:58 Subjective: uncomfortable- c-collar - Objective Resuscitation Status: Resuscitation Status FULL:Full Resuscitation MAR Reviewed: Yes Vital Signs & Weight: Vital Signs (12 hours) Temp Pulse Resp BP BP BP Pulse Ox 10/09/17 07:41 142/50 H 10/09/17 07:20 98.1 F 76 23 H 142/50 H 96 10/09/17 04:00 98.3 F 73 18 155/53 H 97 10/09/17 00:18 74 16 95 10/09/17 00:01 74 18 144/47 H 91 L 10/08/17 20:00 98.5 F 79 18 129/39 L 94 L Weight Admit Weight 209 lb Weight 209 lb 9.6 oz Most Recent Monitor Data Heart Rate from ECG 106 NIBP 176/68 NIBP BP-Mean 96 Respiration from ECG 38 SpO2 86 I&O: 10/08/17 10/09/17 10/10/17 06:59 06:59 06:59 Intake Total 1008 1299 Output Total 4150 9030 Balance -4266 -8053 Result Diagrams: 10/09/17 04:31 10/09/17 04:31 Radiology Reviewed by me: Yes (cxr- infiltrate resolved) Phys Exam - Physical Examination Neck: no JVD Respiratory: no wheezing, no rales, clear to auscultation bilateral Cardiovascular: RRR, no significant murmur Gastrointestinal: soft, non-tender, positive bowel sounds Musculoskeletal: no edema Dx/Plan (1) Acute respiratory failure Code(s): J96.00 - ACUTE RESPIRATORY FAILURE, UNSP W HYPOXIA OR HYPERCAPNIA Status: Resolved Qualifiers: Respiratory failure complication: hypoxia Qualified Code(s): J96.01 - Acute respiratory failure with hypoxia (2) Hemoptysis Code(s): R04.2 - HEMOPTYSIS Status: Resolved (3) Pulmonary hemorrhage Code(s): R04.89 - HEMORRHAGE FROM OTHER SITES IN RESPIRATORY PASSAGES Status: Resolved (4) Anticoagulant causing adverse effect in therapeutic use Code(s): T45.515A - ADVERSE EFFECT OF ANTICOAGULANTS, INITIAL ENCOUNTER Status : Acute Qualifiers: Encounter type: initial encounter Qualified Code(s): T45.515A - Adverse effect of anticoagulants, initial encounter (5) Anemia, posthemorrhagic, acute Code(s): D62 - ACUTE POSTHEMORRHAGIC ANEMIA Status: Acute (6) Afib Code(s): I48.91 - UNSPECIFIED ATRIAL FIBRILLATION Status: Acute Qualifiers: Atrial fibrillation type: chronic Qualified Code(s): I48.2 - Chronic atrial fibrillation Comment: in sinus now (7) CAD (coronary artery disease) Code(s): I25.10 - ATHSCL HEART DISEASE OF [place] CORONARY ARTERY W/O ANG PCTRS Status: Chronic Qualifiers: Coronary Disease-Associated Artery/Lesion type: [place] artery [place] vs. transplanted heart: [place] heart Associated angina: without angina Qualified Code(s): I25.10 - Atherosclerotic heart disease of [place] coronary artery without angina pectoris (8) Dyslipidemia Code(s): E78.5 - HYPERLIPIDEMIA, UNSPECIFIED Status: Chronic (9) HTN (hypertension) Code(s): I10 - ESSENTIAL (PRIMARY) HYPERTENSION Status: Chronic Qualifiers: Hypertension type: essential hypertension Qualified Code(s): I10 - Essential (primary) hypertension (10) Cardiomyopathy Code(s): I42.9 - CARDIOMYOPATHY, UNSPECIFIED Status: Acute Qualifiers: Cardiomyopathy type: unspecified Qualified Code(s): I42.9 - Cardiomyopathy , unspecified Comment: LVEF 30-35 % on echo (11) Atrial fibrillation and flutter Code(s): I48.91 - UNSPECIFIED ATRIAL FIBRILLATION; I48.92 - UNSPECIFIED ATRIAL FLUTTER Status: Acute - Plan DC C collar -: start lisinopril, cont coreg, switch lasix to po ? -: discuss with cardiology, pulmonology -: Anticoag? -: cont po antibx, nebs, O2 etc * .
--- NOTE | 2017-10-09 08:32 | RAD ---
PORTABLE CHEST: Comparison: 10-07-17 History: Hemoptysis. FINDINGS: The heart size is enlarged. There is post op sternotomy change. The diffuse airspace opacities show s ome slight improvement as compared to the prior exam. There is no new process. IMPRESSION: 1. Some minimal improvement to the airspace opacification. 2. Cardiomegaly. POS: [facility]
--- NOTE | 2017-10-09 08:37 | PRG ---
DATE OF SERVICE: 10/09/2017 This morning he is awake, alert, responsive. He is better. PHYSICAL EXAMINATION: VITAL SIGNS: Sats are 92 on 4 liters, pulse 85, temperature 98, blood pressure 140/50. His I's and O's are 1299 in, 3150 out. CHEST: Chest reveals minimal crackles, without any wheezing. CARDIAC: Normal S1-S2. No gallops. ABDOMEN: Soft. No masses. LABORATORY: BUN is elevated slightly at 29. BNP was 406, white count 9,000, H&H 8 and 26. Electrol ytes are normal. IMPRESSION: 1. Respiratory failure, pulmonary hemorrhage, probably secondary to Xarelto. 2. Congestive heart failure. 3. Recent neck and back surgery. 4. Severe deconditioning. PLAN: Switch over to oral medication. Eventually rehab. PT and supportive care. Additionally to note I have started him back on low dose Lovenox for DVT prophylaxis. I will follow.
[2017-10-09] MEDS: Enoxaparin Sodium 40 MG/0.4 ML SYRINGE SC SCH (09:45)
--- NOTE | 2017-10-09 09:59 | PRG ---
DATE OF SERVICE: 10/09/2017 HISTORY: Mr. Landry is doing well. He has a neck brace off. He is much more comfortable. He is aw quyen and alert. He is not short of breath. PHYSICAL EXAMINATION: VITAL SIGNS: His blood pressure 142/50, pulse 80, it is regular. LUNGS: Clear. CARDIAC: Normal S1 and normal S2. ABDOMEN: Soft, nontender. EXTREMITIES: There is no edema. LABORATORY DATA: BNP yesterday was 406. ASSESSMENT: 1. Congestive heart failure, diastolic, acute on chronic, improving. 2. Hypokalemia, potassium 3.1. 3. Hemoptysis. 4. History of atrial flutter. Fortunately, maintaining sinus rhythm. 5. He also has some nonsustained ventricular tachycardia. PLAN: 1. Replete potassium. 2. Cannot be anticoagulated. 3. We will add spironolactone. 4. Continue angiotensin receptor blockers. 5. Continue beta blockers. We will continue to follow with you. The patient is improving. Okay wi th me to move out of the IMCU to the telemetry.
[2017-10-09] MEDS ORDERED: Spironolactone 25 MG TAB PO SCH (10:00)
[2017-10-09 16:21] LABS: Glomerular Basmt Membrane SO 8 units (0-20)
[2017-10-09] MEDS: Atorvastatin Calcium 20 MG TAB PO SCH (21:00)
[2017-10-10 04:24] LABS: Anion Gap 11 mmol/L (10-20); BUN (Urea Nitrogen) 33 mg/dL (8.4-25.7); Calc. Creatinine Clearance 113 mL/min (70-130); Calcium 8.3 mg/dL (7.8-10.44); Carbon Dioxide 27 mmol/L (23-31); Chloride 99 mmol/L (98-107); Estimated GFR-MDRD Greater than 90; Glucose 94 mg/dL (80-115); Sodium 134 mmol/L (136-145)
[2017-10-10 04:31] LABS: Potassium 2.9 mmol/L (3.5-5.1)
--- NOTE | 2017-10-10 08:33 | PRG ---
DATE OF SERVICE: 10/10/2017 This morning he is awake, responsive. Apparently his neurosurgeon from [place] called today and said he wanted him back on his trach and his cervical collar. The patient refused to wear the collar. He wants someone to call the doctor's office to confirm that is what he wanted. PHYSICAL EXAMINATION: VITAL SIGNS: Sats are 92 on 4 liters, blood pressure 159/57, respirations 18, temperature 98. His I's and O's are 1299 in, 3150 out. CHEST: Chest revealed bilateral crackles. CARDIAC: Normal S1, S2. ABDOMEN: Soft, no masses. BUN is increased to 33, creatinine 2.9. IMPRESSION: 1. Congestive heart failure. 2. Hemoptysis. 3. Cervical, thoracic surgery 6 weeks. PLAN: Continue antibiotic therapy and PT. Hopefully, he can be transferred to the rehab in the next several days if he is walking in [place]. I will follow. WILLAM
[2017-10-10] MEDS: Cefdinir 300 MG CAP PO SCH ×4 (08:55→20:37)
[2017-10-10] MEDS: Potassium Chloride 20 MEQ TAB PO SCH ×6 (08:55→18:27)
[2017-10-10] MEDS: predniSONE 20 MG TAB PO SCH (08:56)
[2017-10-10] MEDS: Spironolactone 25 MG TAB PO SCH (08:56)
[2017-10-10] MEDS: Furosemide 40 MG TAB PO SCH (08:56)
[2017-10-10] MEDS: Carvedilol 6.25 MG TAB PO SCH ×2 (08:56→18:27)
[2017-10-10] MEDS: Enoxaparin Sodium 40 MG/0.4 ML SYRINGE SC SCH (08:56)
[2017-10-10] MEDS: Losartan 25 MG TAB PO SCH ×2 (09:29)
--- NOTE | 2017-10-10 09:33 | PDOC.PN ---
- Subjective Encounter Start Date: 10/10/17 Encounter Start Time: 09:31 Subjective: no sob - Objective Resuscitation Status: Resuscitation Status FULL:Full Resuscitation MAR Reviewed: Yes Vital Signs & Weight: Vital Signs (12 hours) Temp Pulse Resp BP BP Pulse Ox 10/10/17 08:56 142/55 H 10/10/17 08:12 94 L 10/10/17 08:11 86 16 10/10/17 07:45 98.4 F 77 16 90 L 10/10/17 07:18 98.4 F 77 34 H 159/57 H 90 L 10/10/17 03:43 99.2 F 71 20 157/48 H 92 L 10/10/17 00:25 71 16 92 L 10/10/17 00:00 98.1 F 75 20 158/53 H 92 L Weight Admit Weight 209 lb Weight 203 lb 14.4 oz Most Recent Monitor Data Heart Rate from ECG 106 NIBP 176/68 NIBP BP-Mean 96 Respiration from ECG 38 SpO2 86 I&O: 10/09/17 10/10/17 10/11/17 06:59 06:59 06:59 Intake Total 1299 1715 Output Total 3150 2220 Balance -1851 -505 Result Diagrams: 10/09/17 04:31 10/10/17 03:23 Phys Exam - Physical Examination Neck: no JVD Respiratory: clear to auscultation bilateral Cardiovascular: RRR, no significant murmur Gastrointestinal: soft, positive bowel sounds Musculoskeletal: no edema Dx/Plan (1) Acute respiratory failure Code(s): J96.00 - ACUTE RESPIRATORY FAILURE, UNSP W HYPOXIA OR HYPERCAPNIA Status: Resolved Qualifiers: Respiratory failure complication: hypoxia Qualified Code(s): J96.01 - Acute respiratory failure with hypoxia (2) Hemoptysis Code(s): R04.2 - HEMOPTYSIS Status: Resolved (3) Pulmonary hemorrhage Code(s): R04.89 - HEMORRHAGE FROM OTHER SITES IN RESPIRATORY PASSAGES Status: Resolved (4) Anticoagulant causing adverse effect in therapeutic use Code(s): T45.515A - ADVERSE EFFECT OF ANTICOAGULANTS, INITIAL ENCOUNTER Status : Acute Qualifiers: Encounter type: initial encounter Qualified Code(s): T45.515A - Adverse effect of anticoagulants, initial encounter (5) Anemia, posthemorrhagic, acute Code(s): D62 - ACUTE POSTHEMORRHAGIC ANEMIA Status: Acute (6) Afib Code(s): I48.91 - UNSPECIFIED ATRIAL FIBRILLATION Status: Acute Qualifiers: Atrial fibrillation type: chronic Qualified Code(s): I48.2 - Chronic atrial fibrillation Comment: in sinus now (7) CAD (coronary artery disease) Code(s): I25.10 - ATHSCL HEART DISEASE OF [place] CORONARY ARTERY W/O ANG PCTRS Status: Chronic Qualifiers: Coronary Disease-Associated Artery/Lesion type: [place] artery [place] vs. transplanted heart: [place] heart Associated angina: without angina Qualified Code(s): I25.10 - Atherosclerotic heart disease of [place] coronary artery without angina pectoris (8) Dyslipidemia Code(s): E78.5 - HYPERLIPIDEMIA, UNSPECIFIED Status: Chronic (9) HTN (hypertension) Code(s): I10 - ESSENTIAL (PRIMARY) HYPERTENSION Status: Chronic Qualifiers: Hypertension type: essential hypertension Qualified Code(s): I10 - Essential (primary) hypertension (10) Cardiomyopathy Code(s): I42.9 - CARDIOMYOPATHY, UNSPECIFIED Status: Acute Qualifiers: Cardiomyopathy type: unspecified Qualified Code(s): I42.9 - Cardiomyopathy , unspecified Comment: LVEF 30-35 % on echo (11) Atrial fibrillation and flutter Code(s): I48.91 - UNSPECIFIED ATRIAL FIBRILLATION; I48.92 - UNSPECIFIED ATRIAL FLUTTER Status: Acute (12) Hypokalemia Code(s): E87.6 - HYPOKALEMIA Status: Acute - Plan cont lasix, bblocker, arb -: cont po antibx -: avoid anticoagulants -: move to tele -: replace K+ * .
[2017-10-10] MEDS: HYDROcodone/Acetaminophen 5/325 mg Tablet PO PRN (09:58)
[2017-10-10 13:30] VITALS: BMI 29.2
--- NOTE | 2017-10-10 15:55 | RAD ---
LUMBAR SPINE TWO VIEWS: History: Low back pain. FINDINGS: Bilateral pedical screws and vertical rods are in place at the L1, L2, L3, L 4 and L5 levels with escrow officer ss bars at the L1-2, L2-3, and L4-5 levels. Metallic markers associated with interbody fusion materia l at the disc space of the L4-5 level are within the confines of the disc space. Prominent osteophyto sis is present throughout the vertebral bodies and facets. Osseous packing material lies between the transverse processes throughout the post-operative levels. No perihardware lucency. Metallic filter o verlies the inferior vena cava. There is prominent calcification of the arterial structures. Vertebral body heights are maintained. IMPRESSION: 1. Extensive post-operative changes lumbar spine without evidence of hardware complication. 2. Atherosclerosis. POS: [facility]
--- NOTE | 2017-10-10 16:10 | RAD ---
CERVICAL SPINE THREE VIEWS: History: 65-year-old male with history of follow up post-operative evaluation. FINDINGS: Extensive anterior cervical fusion changes are noted from C3 through C7. C6, C7, and C7-T1 regions ar e obscured on the lateral view. No significant prevertebral soft tissue swelling. Left sided neck vas cular stent. No old studies available. Extensive post-operative anterior cervical fusion changes from C3 through C7 with anterior metal plat e and screws. No old studies. Incomplete visualization of C6, C7, and C7-T1 on the lateral view. No s ignificant abnormality involving the visualized cervical spine. POS: [facility]
--- NOTE | 2017-10-10 17:42 | PRG ---
DATE OF SERVICE: 10/10/2017 SUBJECTIVE: Mr. Landry is doing very well, no complaints. OBJECTIVE: VITAL SIGNS: Blood pressure 148/52 and pulse 76, regular. LUNGS: Clear. CARDIAC: Normal S1 and S2. ASSESSMENT: 1. Congestive heart failure, improved. 2. Anemia is improved. 3. Hemoptysis, resolved. 4. Coronary artery disease, stable. PLAN: Continue current regimen. No changes at this point.
[2017-10-10] MEDS: Atorvastatin Calcium 20 MG TAB PO SCH (20:36)
[2017-10-11] MEDS: HYDROcodone/Acetaminophen 5/325 mg Tablet PO PRN ×2 (01:07→17:01)
[2017-10-11] MEDS: Furosemide 40 MG TAB PO SCH (09:19)
[2017-10-11] MEDS: Carvedilol 6.25 MG TAB PO SCH ×2 (09:19→16:59)
[2017-10-11] MEDS: Potassium Chloride 20 MEQ TAB PO SCH ×2 (09:20)
[2017-10-11] MEDS: predniSONE 20 MG TAB PO SCH (09:20)
[2017-10-11] MEDS: Spironolactone 25 MG TAB PO SCH (09:20)
[2017-10-11] MEDS: Cefdinir 300 MG CAP PO SCH ×4 (09:20→20:56)
[2017-10-11] MEDS: Losartan 25 MG TAB PO SCH ×2 (09:20)
[2017-10-11] MEDS: Enoxaparin Sodium 40 MG/0.4 ML SYRINGE SC SCH (09:21)
--- NOTE | 2017-10-11 10:00 | RAD ---
CHEST TWO VIEWS: 10/11/2017 HISTORY: CHF. COMPARISON: 10/09/2017 FINDINGS: Post surgical changes related to CABG are noted. The cardiac silhouette is mildly enlarged. There a re increased interstitial opacities within the lungs bilaterally, greatest involving the right lung. Greater parenchymal air space opacities are seen in the left lung base on the prior study, which hav e improved. There are post surgical changes partially visualized involving the lumbar spine. Post s urgical changes of the cervical spine are not well seen, as the patient's overlying mandible and jaw obscure the lower cervical spine and the medial aspect of each lung apex. No other interval change. IMPRESSION: Improvement in parenchymal air space opacity at the left lung base, which may be related to improving pneumonia; however, there are persistent increased interstitial densities bilaterally, greater on th e right, which may be related to a residual infectious process or asymmetric pulmonary edema. Contin ued followup to resolution is recommended. POS: [facility]
[2017-10-11] MEDS ORDERED: Tamsulosin HCl 0.4 MG CAP PO SCH (10:30)
[2017-10-11] MEDS ORDERED: Finasteride 5 MG TAB PO SCH (10:30)
--- NOTE | 2017-10-11 11:22 | PRG ---
DATE OF SERVICE: 10/11/2017 This morning he is awake, alert, responsive. He is doing better. He has less hemoptysis. PHYSICAL EXAMINATION: VITAL SIGNS: Sats are 95% on 3 liters, respiratory 20, temperature 98, blood pressure 164/57. CHEST: No wheezing or crackles. CARDIAC: Normal S1, S2, no gallops. ABDOMEN: Soft, no masses. IMPRESSION: 1. Pulmonary hemorrhage, probably brought on by Xarelto. 2. Recent neck and back surgery. LABORATORY AND X-RAY FINDINGS: The chest x-ray still shows some nonspecific interstitial haziness, p robably some old blood still in his chest. PLAN: He is on oral antibiotics, steroids, neb treatments, supportive care. He can probably go to the rehab for aggressive PT.
[2017-10-11] MEDS: Finasteride 5 MG TAB PO SCH (11:38)
--- NOTE | 2017-10-11 11:49 | PDOC.PN ---
- Subjective Encounter Start Date: 10/11/17 Encounter Start Time: 11:47 Subjective: unable to void, requiring in-out cath - Objective Resuscitation Status: Resuscitation Status FULL:Full Resuscitation MAR Reviewed: Yes Vital Signs & Weight: Vital Signs (12 hours) Temp Pulse Resp BP BP Pulse Ox 10/11/17 11:38 98.8 F 84 17 163/50 H 95 10/11/17 09:19 142/55 H 10/11/17 07:49 98.0 F 77 20 95 10/11/17 07:37 98.0 F 77 20 164/57 H 95 10/11/17 06:57 82 22 H 96 10/11/17 05:09 99 10/11/17 04:00 97.9 F 70 23 H 134/44 L 96 10/11/17 01:16 69 32 H 99 10/10/17 23:59 98.4 F 84 24 H 157/48 H 95 Weight Admit Weight 208 lb 15.971 oz Weight 202 lb 6.4 oz Most Recent Monitor Data Heart Rate from ECG 106 NIBP 176/68 NIBP BP-Mean 96 Respiration from ECG 38 SpO2 86 I&O: 10/10/17 10/11/17 10/12/17 06:59 06:59 06:59 Intake Total 1715 1659 Output Total 2220 2250 Balance -505 -591 Result Diagrams: 10/09/17 04:31 10/10/17 03:23 Phys Exam - Physical Examination Respiratory: no rales, clear to auscultation bilateral Cardiovascular: RRR, no significant murmur Gastrointestinal: soft, non-tender Musculoskeletal: no edema Dx/Plan (1) Acute respiratory failure Code(s): J96.00 - ACUTE RESPIRATORY FAILURE, UNSP W HYPOXIA OR HYPERCAPNIA Status: Resolved Qualifiers: Respiratory failure complication: hypoxia Qualified Code(s): J96.01 - Acute respiratory failure with hypoxia (2) Hemoptysis Code(s): R04.2 - HEMOPTYSIS Status: Resolved (3) Pulmonary hemorrhage Code(s): R04.89 - HEMORRHAGE FROM OTHER SITES IN RESPIRATORY PASSAGES Status: Resolved (4) Anticoagulant causing adverse effect in therapeutic use Code(s): T45.515A - ADVERSE EFFECT OF ANTICOAGULANTS, INITIAL ENCOUNTER Status : Acute Qualifiers: Encounter type: initial encounter Qualified Code(s): T45.515A - Adverse effect of anticoagulants, initial encounter (5) Anemia, posthemorrhagic, acute Code(s): D62 - ACUTE POSTHEMORRHAGIC ANEMIA Status: Acute (6) Afib Code(s): I48.91 - UNSPECIFIED ATRIAL FIBRILLATION Status: Acute Qualifiers: Atrial fibrillation type: chronic Qualified Code(s): I48.2 - Chronic atrial fibrillation Comment: in sinus now (7) CAD (coronary artery disease) Code(s): I25.10 - ATHSCL HEART DISEASE OF [place] CORONARY ARTERY W/O ANG PCTRS Status: Chronic Qualifiers: Coronary Disease-Associated Artery/Lesion type: [place] artery [place] vs. transplanted heart: [place] heart Associated angina: without angina Qualified Code(s): I25.10 - Atherosclerotic heart disease of [place] coronary artery without angina pectoris (8) Dyslipidemia Code(s): E78.5 - HYPERLIPIDEMIA, UNSPECIFIED Status: Chronic (9) HTN (hypertension) Code(s): I10 - ESSENTIAL (PRIMARY) HYPERTENSION Status: Chronic Qualifiers: Hypertension type: essential hypertension Qualified Code(s): I10 - Essential (primary) hypertension (10) Cardiomyopathy Code(s): I42.9 - CARDIOMYOPATHY, UNSPECIFIED Status: Acute Qualifiers: Cardiomyopathy type: unspecified Qualified Code(s): I42.9 - Cardiomyopathy , unspecified Comment: LVEF 30-35 % on echo (11) Atrial fibrillation and flutter Code(s): I48.91 - UNSPECIFIED ATRIAL FIBRILLATION; I48.92 - UNSPECIFIED ATRIAL FLUTTER Status: Acute (12) Hypokalemia Code(s): E87.6 - HYPOKALEMIA Status: Acute (13) Urinary retention Code(s): R33.9 - RETENTION OF URINE, UNSPECIFIED Status: Acute - Plan coming to place catheter, to REHAB if no complications * .
[2017-10-11] MEDS ORDERED: Potassium Chloride 20 MEQ TAB PO SCH ×2 (16:15)
--- NOTE | 2017-10-11 18:26 | DIS ---
[facility] Call admission for [facility] [place], out of town doctor. Referred to the [facility] [place] Hospitalist Service after transfer from [facility]. FINAL DIAGNOSES: Coagulopathy related to Xarelto, pulmonary hemorrhage, hemoptysis, acute respirator y failure, atrial fibrillation, demand ischemia, coronary artery disease, hypertension, dyslipidemia, cardiomyopathy, anemia, posthemorrhagic; status post cervical spine surgery with grafts and lumbar s pine surgery with grafts. DISCHARGE MEDICATIONS: Lyrica 75 mg p.o. b.i.d., Multaq 400 mg p.o. b.i.d., Coreg 6.25 mg p.o. b.i.d ., Lipitor 20 mg p.o. at bedtime, aspirin 81 mg a day, prednisone 20 mg a day, Flomax 0.4 mg a day, A ldactone 25 mg a day, Protonix 40 mg a day, losartan 50 mg a day, DuoNeb 3 mL q.6 hours p.r.n., [place] 5/325 one p.o. q.8 hours p.r.n., Lasix 40 mg a day, finasteride 5 mg a day, and Omnicef 300 mg p.o. b.i.d. ALLERGIES: PENICILLINS. HOSPITAL COURSE: Patient post-surgery in [place] for C-spine and LS spine surgery was in [facility] for rehabilitation. He developed acute shortness of breath with atrial fibrillat ion, rapid ventricular response. Patient was started on anticoagulation with Xarelto, Multaq, discha rged to rehabilitation. The patient was doing well. He was found to be pale, coughing up bright red blood, transferred to [facility], tachypneic, pulses in 130s and 140s, unable to tolerate oxygen. CT of the chest was done to rule out PE, showed bilateral opacities. He was intubated for protectio n of airway and sedated. He had a hemoglobin of 7.7, which dropped to 5.5. Had a history of coronar y artery bypass graft in the past. CTA of the thorax revealed no pulmonary embolus, but multiple dif fuse opacities considering his hemoptysis and his coagulopathy, most likely acute pulmonary hemorrhag e. At the time he came in, his INR was 4.2. PTT was 92.2. The Xarelto was stopped. He was transfu sed to hemoglobin of 7.7 and he has slowly crept up to 8.8. His white cell count during all of this has been normal. Platelet count has also been normal. Initial blood gas showed a pH of 7.50, CO2 of 35.6, O2 of 55.1. HIV titers were nonreactive. Collagen vascular disease titers were unremarkable. The patient was treated with IV antibiotics, ventilation support, and transfusion. He was seen in consultation by Dr. Dexter Boston. There was significant hemoptysis, oozing from multiple areas. No obv ious endobronchial disease. His admission was on 10/04/2017. On 10/05/2017, Dr. De La Torre was consulte d. He had an echocardiogram showing EF of 30%-35%. When I first saw the patient on 10/05/2017, he h ad been extubated had no hemoptysis. Coagulopathy was slowly improved. His medicines were slowly ad ded except the Xarelto. On 10/05/2017, there was some improvement in the patchy infiltrates. Renal ultrasound done revealed no focal renal lesion or hydronephrosis. Chest x-ray 10/07/2017 showed slow clearing of the infiltrates. Heart size remained constant Cardiology note on 10/07/2017 noted that he was still needing high flow O2, still short of breath. The patient was continued on IV Lasix, con tinued on antibiotics for possible underlying pneumonia. Pulmonary report alveolar hemorrhage. His final chest x-ray done today reveals mild scattered infiltrates left, some haziness of the diaphragms , heart size normal. The patient is currently 94-95 on 2 liters of O2, blood pressure 142/55, temper ature 98.8, and respirations 17-20. Chest is grossly clear. Heart has a regular rate and rhythm. CURRENT LABORATORY DATA: Sodium 134, BUN 29 and 33, creatinine 0.89 and 0.84. Potassium was low. H is microbiology for sputum urine and blood were negative. His current CBC is 9.2 grams of hemoglobin , 9.2 white count, 8.8 hemoglobin, 284,000 platelet count. The patient had C-spine x-ray which reve aled extensive postoperative anterior cervical fusion from C3-C7 with anterior metal plates and screw s. Lumbar spine x-ray, extensive postop changes of the lumbar spine without evidence of hardware com plication. These results have been sent to his neurosurgeon in [place], Dr. Evans. Currently, the patient has been slowly progressing from pulmonary hemorrhage. He is currently off anticoagulant, b ut on aspirin. The only operative done was his bronchoscopy. Consultations included Dr. Erwin Hale, Cardiology, Dr. Dexter oBston, Pulmonology. Cardiology and P ulmonology are comfortable with his current status and transfer to rehabilitation. Post-rehabilitati on, he will need to eventually follow up with Dr. Evans, his neurosurgeon in [place]. He has the p yola number. He has been in urinary retention today. Dr. João Ludwig has been consulted for Fole y catheter. Once the Rose catheter is inserted and draining, the patient will be transferred back t o rehab. Orders have been written. He will of course have rehabilitation need, PT, OT, heart health y diet, Rose care, nebulizer treatments, O2 to keep saturations above 90. Add K-Dur 20 mEq daily to his medication list. Forty minutes spent preparing this discharge.
[2017-10-11] MEDS: Atorvastatin Calcium 20 MG TAB PO SCH (20:56)
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
[2017-10-12 04:26] LABS: Anion Gap 9 mmol/L (10-20); BUN (Urea Nitrogen) 20 mg/dL (8.4-25.7); Calc. Creatinine Clearance 115 mL/min (70-130); Calcium 8.9 mg/dL (7.8-10.44); Carbon Dioxide 26 mmol/L (23-31); Chloride 101 mmol/L (98-107); Estimated GFR-MDRD Greater than 90; Glucose 93 mg/dL (80-115); Potassium 3.7 mmol/L (3.5-5.1); Sodium 132 mmol/L (136-145)
[2017-10-12] MEDS: HYDROcodone/Acetaminophen 5/325 mg Tablet PO PRN (04:53)
[2017-10-12] MEDS: Spironolactone 25 MG TAB PO SCH (08:18)
[2017-10-12] MEDS: Finasteride 5 MG TAB PO SCH (08:18)
[2017-10-12] MEDS: predniSONE 20 MG TAB PO SCH (08:18)
[2017-10-12] MEDS: Cefdinir 300 MG CAP PO SCH ×2 (08:18)
[2017-10-12] MEDS: Losartan 25 MG TAB PO SCH ×2 (08:18)
[2017-10-12] MEDS: Furosemide 40 MG TAB PO SCH (08:19)
[2017-10-12] MEDS: Enoxaparin Sodium 40 MG/0.4 ML SYRINGE SC SCH (08:19)
[2017-10-12] MEDS: Carvedilol 6.25 MG TAB PO SCH (08:19)
--- NOTE | 2017-10-12 08:54 | PRG ---
DATE OF SERVICE: 10/12/2017 This morning he is awake, alert and responsive. No hemoptysis. PHYSICAL EXAMINATION: VITAL SIGNS: Sats are 99 on 2 liters, blood pressure 142/55, temperature 98. His I's and O's have b een good, 1659 in, 2250 out. GENERAL: Awake, alert and responsive. He is going to the rehab today. His electrolytes are normal. CHEST: Chest reveals decreased breath sounds, no wheezing. CARDIAC: Normal S1, S2, no gallops. ABDOMEN: Soft, no masses. IMPRESSION: 1. Pulmonary hemorrhage brought on by epistaxis aggravated by the Xarelto. 2. Respiratory failure, improved. 3. Benign prostatic hypertrophy with a recent thoracic and spinal surgery. PLAN: He will go to the rehab for ongoing evaluation and eventually back home. His prednisone can b e tapered over 2 weeks slowly.
[2017-10-12] MEDS ORDERED: Tamsulosin HCl 0.4 MG CAP PO SCH (09:00)
[2017-10-12 13:06] VITALS: BP 135/51; TEMP 98.2
--- NOTE | 2017-10-12 14:52 | PRG ---
DATE OF SERVICE: 10/12/2017 SUBJECTIVE: Mr. Landry is doing well, no complaints. No chest pain or shortness of breath. PHYSICAL EXAMINATION: VITAL SIGNS: Blood pressure earlier was 169/55, subsequently 135/51, pulse 80. LUNGS: Clear. CARDIAC: Normal S1 and normal S2. ABDOMEN: Soft, nontender. EXTREMITIES: No edema. ASSESSMENT: 1. Hypertension. 2. Anemia. 3. Hemoptysis, resolved. 4. Atrial arrhythmias, cannot be anticoagulated at this time due to severe hemoptysis. 5. Hypokalemia, improved. Potassium is 3.7. PLAN: 1. Resume aspirin 81 mg a day. 2. Continue Coreg 6.25 mg twice a day. 3. We will increase losartan to 100 mg a day starting tomorrow. 4. Start spironolactone. 5. Furosemide 40 mg a day. The patient is to be transferred to the rehab area. Ultimately, we will need further attention to the atrial arrhythmias. Dr. Schwartz saw the patient previously, preferred to let the patient's other medical condition stabilize first.
[2017-10-13] MEDS ORDERED: Aspirin 81 mg Enteric Coated Tablet PO SCH (09:00)
[2017-10-13] MEDS ORDERED: Losartan 25 MG TAB PO SCH ×2 (09:00)
== END 2017-10-12 14:36 | DRG 208 ==
LOC: ERS 19:52 → CCU 10-04 00:03 → IMCU/EMU 10-06 12:36
PROVIDERS: ADMIT Family Medicine; ATTEND Family Medicine
PROC: 30233N1 Transfusion of Nonautologous Red Blood Cells into Peripheral Vein, Percutaneous Approach (ICD-10-PCS; 2017-10-03)
PROC: 3E1F88Z Irrigation of Respiratory Tract using Irrigating Substance, Via Natural or Artificial Opening Endoscopic (ICD-10-PCS; principal; 2017-10-04)
PROC: 5A1945Z Respiratory Ventilation, 24-96 Consecutive Hours (ICD-10-PCS; 2017-10-04)
PROC: 0BH17EZ Insertion of Endotracheal Airway into Trachea, Via Natural or Artificial Opening (ICD-10-PCS; 2017-10-04)
DX: J96.01 Acute respiratory failure with hypoxia (principal); I50.33 Acute on chronic diastolic (congestive) heart failure; J18.9 Pneumonia, unspecified organism; I47.2 Ventricular tachycardia; N17.9 Acute kidney failure, unspecified; D68.32 Hemorrhagic disorder due to extrinsic circulating anticoagulants; E87.1 Hypo-osmolality and hyponatremia; D62 Acute posthemorrhagic anemia; R04.89 Hemorrhage from other sites in respiratory passages; I42.9 Cardiomyopathy, unspecified; I24.8 Other forms of acute ischemic heart disease; I48.92 Unspecified atrial flutter; I11.0 Hypertensive heart disease with heart failure; I48.2 Chronic atrial fibrillation; G47.33 Obstructive sleep apnea (adult) (pediatric); E87.6 Hypokalemia; N40.0 Benign prostatic hyperplasia without lower urinary tract symptoms; E78.5 Hyperlipidemia, unspecified; I25.10 Atherosclerotic heart disease of native coronary artery without angina pectoris; R33.9 Retention of urine, unspecified; T45.515A Adverse effect of anticoagulants, initial encounter; Z87.891 Personal history of nicotine dependence; Z88.0 Allergy status to penicillin; Z79.01 Long term (current) use of anticoagulants; Z79.82 Long term (current) use of aspirin; Z79.899 Other long term (current) drug therapy; Z95.1 Presence of aortocoronary bypass graft
CPT/HCPCS: 31500; 36415; 36430; 36556; 51702; 71045; 71046; 71275; 72040; 72100; 76770; 80048; 80076; 80202; 81003; 82533; 82550; 82553; 82728; 82805; 83516; 83520; 83540; 83550; 83605; 83735; 83880; 84100; 84443; 84484; 85025; 85379; 85610; 85730; 86140; 86256; 86850; 86900; 86901; 87040; 87070; 87086; 87205; 87389; 87633; 87798; 93005; 93306; 94002; 94003; 94640; 94660; 94760; 96365; 96366; 96368; 96375; 99292; A4216; C9113; C9132; G8978-GP-CK; G8979-GP-CI; G8996-GN-CJ; G8997-GN-CJ; J0171; J0692; J1720; J1940; J1956; J2060; J2250; J2270; J2930; J3010; J3370; J3430; J3480; J7050; J7620; P9016